=== PATIENT | female | born 1960 | race Caucasian/White ===

== ENCOUNTER 2022-10-12 06:48 | Emergency (ER) | payer MEDICAID ==
[~2022-10-12] VITALS: Ht 165.1 cm; Wt 63.5 kg
[2022-10-12 06:53] VITALS: BP_SYST 130
--- NOTE | 2022-10-12 07:01 | NUR ---
Patient to ER bed 5 to gown for evaluation. Side rails up. Report given to DAY SHIFT.
--- NOTE | 2022-10-12 07:03 | NUR ---
Dr. Contreras at bedside examining the patient.
[2022-10-12] MEDS ORDERED: PANTOPRAZOLE SODIUM 40 MG/VIAL (PROTONIX) IVP ONE (07:15)
[2022-10-12] MEDS ORDERED: MAG HYDROX/AL HYDROX/SIMETH 30 ML, LIDOCAINE VISCOUS 2% 15ML (PO) 15 ML, DICYCLOMINE HC... PO ONE ×3 (07:15)
--- NOTE | 2022-10-12 07:20 | NUR ---
PT BIBA AWAKE AND ALERT AOX4, NO SOB OR DISTRESS. PT C/O ABDOMINAL PAIN 02/21. PT DENIES N/V. PT HAS HX OF GERD, ETOH.
[2022-10-12 07:35] LABS: BASOPHILS # (AUTO) 0.1 K/uL (0.0-0.2); BASOPHILS % (AUTO) 0.9 % (0.0-2.0); EOSINOPHILS # (AUTO) 0.1 K/uL (0.0-0.4); HEMATOCRIT 40.4 % (36-48); HEMOGLOBIN 13.3 g/dL (12.0-16.0); LYMPHOCYTES # (AUTO) 2.1 K/uL (1.0-5.5); LYMPHOCYTES % (AUTO) 25.6 % (20.5-51.5); MEAN CORPUSCULAR HEMOGLOBIN 25 pg (27-31); MEAN CORPUSCULAR HGB CONC 33 % (32-36); MEAN CORPUSCULAR VOLUME 77 fL (79.0-98.0); MONOCYTES # (AUTO) 0.5 K/uL (0.0-1.0); MONOCYTES % (AUTO) 5.9 % (1.7-9.3); NEUTROPHILS # (AUTO) 5.4 K/uL (1.8-7.7); NEUTROPHILS % (AUTO) 66.6 % (40.0-70.0); PLATELET COUNT (AUTO) 454 K/uL (130-430); RED BLOOD CELL COUNT(AUTO) 5.25 MIL/uL (4.2-6.2); RED CELL DISTRIBUTION WIDTH 15.2 % (9.0-15.0); WHITE BLOOD COUNT (AUTO) 8.1 K/uL (4.8-10.8)
[2022-10-12 07:44] LABS: ANION GAP 9 (5-15); CALCIUM 8.7 mg/dL (8.4-11.0); CHLORIDE 104 mmol/L (98-107); CREATININE 0.78 mg/dL (0.55-1.30); GLUCOSE 124 mg/dL (70-99); UREA NITROGEN, BLOOD 10 mg/dL (8-21)
[2022-10-12 07:46] LABS: GFR AFRICAN AMERICAN 97 mL/min (>90)
[2022-10-12 07:48] LABS: PROTHROMBIN TIME 10.1 SECS (9.5-12.5)
[2022-10-12 07:51] LABS: ALANINE AMINOTRANSFERASE 13 U/L (12-78); ALBUMIN 2.9 g/dL (3.4-4.8); ASPARTATE AMINOTRANSFERASE 14 U/L (10-37); TOTAL BILIRUBIN 0.3 mg/dL (0.0-1.0)
[2022-10-12] MEDS ORDERED: SUCR1ORA4 PO (08:00)
[2022-10-12] MEDS ORDERED: ONDA-8 TL (08:00)
--- NOTE | 2022-10-12 08:19 | NUR ---
Patient given written and verbal discharge instructions and verbalizes understanding. ER MD DR PORTILLO discussed with patient the results and treatment provided. Patient in stable condition. ID arm band removed. IV catheter removed intact and dressing applied, no active bleeding. Rx of ZOFRAN, CARAFAT given. Patient educated on pain management and to follow up with PMD. Pain Scale 0/10. Opportunity for questions provided and answered. Medication side effect fact sheet provided.
[2022-10-12 08:44] VITALS: BP_SYST 135
== END 2022-10-12 08:19 | disposition home or self-care (01) ==
LOC: SED 06:48
DX: R10.10 Upper abdominal pain, unspecified (principal); R11.10 Vomiting, unspecified; Z79.899 Other long term (current) drug therapy
CPT/HCPCS: 99285; 96374; 71045; 80053; 85025; 85610; 85730; 86886; 86900; 86901; 84484; 36415; 93005; G0482; J2001; C9113

== ENCOUNTER 2023-02-09 12:43 | Inpatient (IN) | payer MEDICAID ==
[~2023-02-09] VITALS: Ht 165.1 cm; Wt 62.6 kg
[~2023-02-09 12:43] MED LIST: ONDA-8 TL; SUCR1ORA4 PO
[2023-02-09 12:58] VITALS: BP_SYST 122; PULSE 100; RESP 18; TEMP 98; O2SAT 94
[2023-02-09] MEDS ORDERED: NS 500 ML IV ONE (13:15)
[2023-02-09] MEDS ORDERED: ONDANSETRON HCL 4 MG/2 ML VIAL IVP ONE (13:15)
[2023-02-09] MEDS ORDERED: MORPHINE 4 MG INJ. 4 MG/ML VIAL IVP ONE (13:15)
[2023-02-09 14:14] LABS: BASOPHILS # (AUTO) 0.1 K/uL (0.0-0.2); EOSINOPHILS # (AUTO) 0.1 K/uL (0.0-0.4); EOSINOPHILS % (AUTO) 1.3 % (0.0-4.0); HEMOGLOBIN 11.3 g/dL (12.0-16.0); LYMPHOCYTES # (AUTO) 1.9 K/uL (1.0-5.5); LYMPHOCYTES % (AUTO) 25.9 % (20.5-51.5); MEAN CORPUSCULAR HEMOGLOBIN 24 pg (27-31); MEAN CORPUSCULAR HGB CONC 32 % (32-36); MEAN CORPUSCULAR VOLUME 73 fL (79.0-98.0); MONOCYTES # (AUTO) 0.8 K/uL (0.0-1.0); MONOCYTES % (AUTO) 10.3 % (1.7-9.3); NEUTROPHILS # (AUTO) 4.6 K/uL (1.8-7.7); NEUTROPHILS % (AUTO) 61.5 % (40.0-70.0); PLATELET COUNT (AUTO) 546 K/uL (130-430); RED CELL DISTRIBUTION WIDTH 15.5 % (9.0-15.0); WHITE BLOOD COUNT (AUTO) 7.5 K/uL (4.8-10.8)
[2023-02-09 14:36] LABS: ANION GAP 7 (5-15); CALCIUM 8.6 mg/dL (8.4-11.0); CHLORIDE 102 mmol/L (98-107); CREATININE 0.64 mg/dL (0.55-1.30); GFR AFRICAN AMERICAN 121 mL/min (>90); GLUCOSE 72 mg/dL (74-106); UREA NITROGEN, BLOOD 6 mg/dL (8-21)
[2023-02-09 14:44] LABS: ALANINE AMINOTRANSFERASE 8 U/L (12-78); ALBUMIN 2.4 g/dL (3.4-4.8); ASPARTATE AMINOTRANSFERASE 12 U/L (10-37); TOTAL BILIRUBIN 0.2 mg/dL (0.0-1.0)
[2023-02-09] MEDS ORDERED: PRO10 (17:30)
[2023-02-09] MEDS ORDERED: GABA-529 (17:31)
[2023-02-09] MEDS ORDERED: ESOM5SUS (17:31)
[2023-02-09 18:30] VITALS: BP_SYST 101; PULSE 106; RESP 16; TEMP 97.5; O2SAT 94
[2023-02-09 18:36] VITALS: BP_SYST 101; PULSE 106; RESP 16; TEMP 97.5
[2023-02-09 20:00] VITALS: BP_SYST 92; PULSE 95; RESP 18; TEMP 97.5; O2SAT 98
[2023-02-09] MEDS ORDERED: NALOXONE HCL 0.4 MG/ML AMP (NARCAN) IVP PRN (20:45)
[2023-02-09] MEDS ORDERED: ACETAMINOPHEN 325 MG TABLET PO PRN (21:30)
[2023-02-09] MEDS ORDERED: traMADol HCL HCL 50 MG TABLET (ULTRAM) PO PRN (21:30)
[2023-02-09] MEDS ORDERED: TEMAZEPAM 15 MG CAPSULE PO PRN (21:30)
[2023-02-09] MEDS ORDERED: ONDANSETRON 4 MG ODT TAB TL PRN (21:30)
[2023-02-09] MEDS: MORPHINE 2 MG/ML INJ. SYRINGE IVP PRN (21:39)
[2023-02-10 00:37] VITALS: BP_SYST 99; PULSE 67; RESP 18; TEMP 97.4; O2SAT 96
[2023-02-10 07:00] VITALS: O2SAT 98
[2023-02-10 07:05] VITALS: BP_SYST 133; PULSE 101; RESP 16; TEMP 98; O2SAT 94
[2023-02-10] MEDS: GABAPENTIN 100 MG CAPSULE PO SCH (08:41)
[2023-02-10] MEDS: SUCRALFATE 1 GM/10 ML UDC PO SCH ×2 (08:41→20:59)
[2023-02-10] MEDS: PANTOPRAZOLE SODIUM 40 MG TAB PO SCH (08:41)
[2023-02-10] MEDS: FLUoxetine HCL 10 MG CAPSULE (PROzac) PO SCH (08:42)
[2023-02-10] MEDS: MORPHINE 2 MG/ML INJ. SYRINGE IVP PRN ×3 (11:58→22:45)
[2023-02-10 12:00] VITALS: BP_SYST 114; PULSE 85; RESP 18; TEMP 98.8; O2SAT 99
[2023-02-10 16:00] VITALS: BP_SYST 121; PULSE 90; RESP 17; TEMP 98.6; O2SAT 95
[2023-02-10 20:00] VITALS: BP_SYST 125; PULSE 85; RESP 18; TEMP 97.3; O2SAT 95
[2023-02-11] VITALS: BP_SYST 91; PULSE 82; RESP 16; TEMP 97.2; O2SAT 95
[2023-02-11 02:07] VITALS: BP_SYST 108; PULSE 84; RESP 18; TEMP 97.3; O2SAT 96
[2023-02-11 08:51] VITALS: BP_SYST 134; PULSE 90; RESP 18; TEMP 97.7; O2SAT 100
[2023-02-11] MEDS: SUCRALFATE 1 GM/10 ML UDC PO SCH (08:53)
[2023-02-11] MEDS: GABAPENTIN 100 MG CAPSULE PO SCH (08:54)
[2023-02-11] MEDS: FLUoxetine HCL 10 MG CAPSULE (PROzac) PO SCH (08:54)
[2023-02-11] MEDS: PANTOPRAZOLE SODIUM 40 MG TAB PO SCH (08:56)
[2023-02-11] MEDS: MORPHINE 2 MG/ML INJ. SYRINGE IVP PRN ×2 (10:15→15:40)
[2023-02-11] MEDS ORDERED: CHOLECALCIFEROL (VITAMIN D3) 2,000 UNIT TABLET PO ONE (14:15)
[2023-02-12] MEDS ORDERED: CHOLECALCIFEROL (VITAMIN D3) 2,000 UNIT TABLET PO SCH (09:00)
== END 2023-02-11 17:43 | DRG 351 ==
LOC: SED 12:43 → SMU 17:08
PROVIDERS: ADMIT Internal Medicine; ATTEND Internal Medicine
DX: M19.011 Primary osteoarthritis, right shoulder (principal); E43 Unspecified severe protein-calorie malnutrition; D64.9 Anemia, unspecified; E78.5 Hyperlipidemia, unspecified; F32.A Depression, unspecified; E55.9 Vitamin D deficiency, unspecified; M19.012 Primary osteoarthritis, left shoulder; Z88.0 Allergy status to penicillin; Z79.899 Other long term (current) drug therapy; Z74.01 Bed confinement status; Z68.23 Body mass index [BMI] 23.0-23.9, adult; I10 Essential (primary) hypertension
CPT/HCPCS: 36415; 72100-TC; 73030; 80053; 82306; 84484; 85025; 85651-TC; 96361; 96374; 96375; 97110-GP; 97530-GP; 99285; J2270; J2405; J7040

== ENCOUNTER 2023-03-16 14:54 | Emergency (ER) | payer MEDICAID ==
[~2023-03-16] VITALS: Ht 165.1 cm; Wt 63.5 kg
[~2023-03-16 14:54] MED LIST changes: +ESOM5SUS; +GABA-529; +PRO10
[2023-03-16 14:55] VITALS: BP_SYST 108; PULSE 117; RESP 18; TEMP 98.8; O2SAT 97
[2023-03-16] MEDS ORDERED: KETOROLAC TROMETHAMINE 30 MG VIAL IVP ONE (15:15)
[2023-03-16] MEDS ORDERED: NACL 0.9% 1,000 ML IV ONE (15:15)
[2023-03-16 15:37] LABS: BASOPHILS # (AUTO) 0.1 K/uL (0.0-0.2); BASOPHILS % (AUTO) 0.8 % (0.0-2.0); EOSINOPHILS # (AUTO) 0.1 K/uL (0.0-0.4); EOSINOPHILS % (AUTO) 1.3 % (0.0-4.0); HEMATOCRIT 35.7 % (36-48); HEMOGLOBIN 11.3 g/dL (12.0-16.0); LYMPHOCYTES # (AUTO) 1.5 K/uL (1.0-5.5); LYMPHOCYTES % (AUTO) 21.2 % (20.5-51.5); MEAN CORPUSCULAR HEMOGLOBIN 23 pg (27-31); MEAN CORPUSCULAR HGB CONC 32 % (32-36); MEAN CORPUSCULAR VOLUME 71 fL (79.0-98.0); MONOCYTES # (AUTO) 0.8 K/uL (0.0-1.0); MONOCYTES % (AUTO) 11.3 % (1.7-9.3); NEUTROPHILS # (AUTO) 4.7 K/uL (1.8-7.7); NEUTROPHILS % (AUTO) 65.4 % (40.0-70.0); PLATELET COUNT (AUTO) 573 K/uL (130-430); RED BLOOD CELL COUNT(AUTO) 5.03 MIL/uL (4.2-6.2); RED CELL DISTRIBUTION WIDTH 17.2 % (9.0-15.0); WHITE BLOOD COUNT (AUTO) 7.1 K/uL (4.8-10.8)
[2023-03-16 15:41] LABS: CALCIUM 8.5 mg/dL (8.4-11.0); CREATININE 0.64 mg/dL (0.55-1.30)
[2023-03-16 15:47] LABS: TOTAL BILIRUBIN 0.3 mg/dL (0.0-1.0)
[2023-03-16 15:48] LABS: ALBUMIN 2.3 g/dL (3.4-4.8)
[2023-03-16 16:19] LABS: BILIRUBIN,URINE NEGATIVE (NEGATIVE); BLOOD, URINE 2+ (NEGATIVE); CLARITY/URINE CLOUDY (CLEAR); COLOR,URINE YELLOW (YELLOW); GLUCOSE,URINE NEGATIVE (NEGATIVE); KETONES,URINE NEGATIVE (NEGATIVE); LEUKOCYTE ESTERASE ,URINE TRACE (NEGATIVE); NITRITE, URINE NEGATIVE (NEGATIVE); PROTEIN URINE NEGATIVE (NEGATIVE)
[2023-03-16] MEDS ORDERED: PANTOPRAZOLE SODIUM 40 MG/VIAL (PROTONIX) IVP ONE (16:30)
[2023-03-16] MEDS ORDERED: ONDANSETRON HCL 4 MG/2 ML VIAL IVP SCH (16:30)
[2023-03-16 16:47] LABS: BACTERIA,URINE MANY /HPF (None Seen); MUCUS,URINE None Seen /LPF (None Seen); URINE AMORPHOUS PHOSPHATES 3+ /HPF (None Seen)
[2023-03-16] MEDS ORDERED: TRAM50TA2 PO (17:09)
[2023-03-16] MEDS ORDERED: LEVO750T64 PO (17:10)
[2023-03-16 19:01] VITALS: BP_SYST 122; PULSE 86; RESP 16; TEMP 97.6; O2SAT 100
== END 2023-03-16 19:37 | disposition home or self-care (01) ==
LOC: SED 14:54
DX: N39.0 Urinary tract infection, site not specified (principal); R10.9 Unspecified abdominal pain; E11.9 Type 2 diabetes mellitus without complications; I10 Essential (primary) hypertension; E78.5 Hyperlipidemia, unspecified; Z88.0 Allergy status to penicillin; Z91.018 Allergy to other foods; Z91.013 Allergy to seafood; Z99.3 Dependence on wheelchair; Z79.899 Other long term (current) drug therapy
CPT/HCPCS: 99285; 74176; 96374; 96361; 80053; 81000; 83690; 85025; 87086; 36415; 76376; J1885; J7030

== ENCOUNTER 2023-03-23 20:20 | Inpatient (IN) | payer MEDICAID ==
[~2023-03-23] VITALS: Ht 162.6 cm; Wt 63.5 kg
[~2023-03-23 20:20] MED LIST changes: +LEVO750T64 PO; +TRAM50TA2 PO
[2023-03-23 20:33] VITALS: BP_SYST 118; PULSE 122; RESP 20; TEMP 98.5; O2SAT 97
[2023-03-23 21:32] LABS: BASOPHILS # (AUTO) 0.1 K/uL (0.0-0.2); BASOPHILS % (AUTO) 1.1 % (0.0-2.0); EOSINOPHILS # (AUTO) 0.2 K/uL (0.0-0.4); EOSINOPHILS % (AUTO) 1.8 % (0.0-4.0); HEMATOCRIT 37.9 % (36-48); LYMPHOCYTES # (AUTO) 2.4 K/uL (1.0-5.5); LYMPHOCYTES % (AUTO) 27.8 % (20.5-51.5); MEAN CORPUSCULAR HEMOGLOBIN 22 pg (27-31); MEAN CORPUSCULAR HGB CONC 32 % (32-36); MEAN CORPUSCULAR VOLUME 70 fL (79.0-98.0); MONOCYTES # (AUTO) 0.6 K/uL (0.0-1.0); MONOCYTES % (AUTO) 7.1 % (1.7-9.3); NEUTROPHILS # (AUTO) 5.3 K/uL (1.8-7.7); NEUTROPHILS % (AUTO) 62.2 % (40.0-70.0); PLATELET COUNT (AUTO) 632 K/uL (130-430); RED BLOOD CELL COUNT(AUTO) 5.42 MIL/uL (4.2-6.2); WHITE BLOOD COUNT (AUTO) 8.6 K/uL (4.8-10.8)
[2023-03-23 22:04] LABS: ALANINE AMINOTRANSFERASE 3 U/L (12-78); ALBUMIN 2.2 g/dL (3.4-4.8); ANION GAP 8 (5-15); ASPARTATE AMINOTRANSFERASE 13 U/L (10-37); CARBON DIOXIDE 24 mmol/L (23-29); CHLORIDE 100 mmol/L (98-107); CREATININE 0.77 mg/dL (0.55-1.30); GFR AFRICAN AMERICAN 98 mL/min (>90); GLUCOSE 143 mg/dL (74-106); POTASSIUM 3.5 mmol/L (3.5-5.1); SODIUM SERUM 132 mmol/L (136-145); TOTAL BILIRUBIN 0.2 mg/dL (0.0-1.0); TOTAL PROTEIN, SERUM 7.8 g/dL (6.4-8.3); UREA NITROGEN, BLOOD 8 mg/dL (8-21)
[2023-03-23 22:18] LABS: GFR NON AFRICAN-AMERICAN 81 mL/min (>90)
[2023-03-23 22:36] LABS: ANISOCYTOSIS 1+; HYPOCHROMASIA 1+; OVALOCYTES MODERATE
[2023-03-23] MEDS ORDERED: MORPHINE 4 MG INJ. 4 MG/ML VIAL IVP ONE (23:30)
[2023-03-23] MEDS ORDERED: ONDANSETRON HCL 4 MG/2 ML VIAL IVP ONE (23:30)
[2023-03-24] MEDS ORDERED: MORPHINE 4 MG INJ. 4 MG/ML VIAL IVP ONE (04:30)
[2023-03-24] MEDS ORDERED: NACL 0.9% 1,000 ML IV ONE (04:30)
[2023-03-24] MEDS ORDERED: MORPHINE 4 MG INJ. 4 MG/ML VIAL ONE (04:40)
[2023-03-24 10:00] VITALS: BP_SYST 119; PULSE 87; RESP 18; TEMP 97.7; O2SAT 98
[2023-03-24 11:44] LABS: BILIRUBIN,URINE NEGATIVE (NEGATIVE); BLOOD, URINE NEGATIVE (NEGATIVE); CLARITY/URINE CLEAR (CLEAR); COLOR,URINE YELLOW (YELLOW); GLUCOSE,URINE NEGATIVE (NEGATIVE); KETONES,URINE NEGATIVE (NEGATIVE); LEUKOCYTE ESTERASE ,URINE NEGATIVE (NEGATIVE); NITRITE, URINE NEGATIVE (NEGATIVE); PH,URINE 6.5 (5.0-8.0); PROTEIN URINE TRACE (NEGATIVE)
[2023-03-24] MEDS ORDERED: ONDANSETRON HCL 4 MG/2 ML VIAL IVP PRN (14:30)
[2023-03-24] MEDS ORDERED: PANTOPRAZOLE SODIUM 40 MG TAB PO ONE (14:30)
[2023-03-24] MEDS ORDERED: GABAPENTIN 300 MG CAPSULE PO ONE (14:30)
[2023-03-24] MEDS ORDERED: ONDANSETRON 4 MG ODT TAB TL PRN (14:30)
[2023-03-24] MEDS ORDERED: SUCRALFATE 1 GM/10 ML UDC PO ONE (15:00)
[2023-03-24] MEDS ORDERED: METOCLOPRAMIDE HCL 10 MG/2 ML VIAL IVP PRN (15:15)
[2023-03-24] MEDS ORDERED: PANTOPRAZOLE SODIUM 80 MG in NS 100 ML IVP ONE (16:00)
[2023-03-24] MEDS ORDERED: PANTOPRAZOLE SODIUM 80 MG in NS 100 ML IV ONE (16:03)
[2023-03-24] MEDS: NACL 0.9% 1,000 ML IV SCH (16:24)
[2023-03-24] MEDS: PANTOPRAZOLE SODIUM 40 MG in NS 50 ML IV SCH ×2 (17:32→22:47)
[2023-03-24 20:00] VITALS: BP_SYST 109; PULSE 98; RESP 17; TEMP 97.8; O2SAT 98
[2023-03-24] MEDS: SUCRALFATE 1 GM/10 ML UDC PO SCH (20:27)
[2023-03-24] MEDS ORDERED: PANTOPRAZOLE SODIUM 40 MG TAB PO SCH (21:00)
[2023-03-25] VITALS: BP_SYST 127; PULSE 97; RESP 17; TEMP 98.2; O2SAT 97
[2023-03-25 01:33] LABS: ALBUMIN 1.8 g/dL (3.4-4.8); ANION GAP 8 (5-15); ASPARTATE AMINOTRANSFERASE 11 U/L (10-37); CARBON DIOXIDE 25 mmol/L (23-29); CHLORIDE 103 mmol/L (98-107); CREATININE 0.54 mg/dL (0.55-1.30); GFR AFRICAN AMERICAN 147 mL/min (>90); GFR NON AFRICAN-AMERICAN 122 mL/min (>90); GLUCOSE 80 mg/dL (74-106); POTASSIUM 3.6 mmol/L (3.5-5.1); SODIUM SERUM 136 mmol/L (136-145); TOTAL BILIRUBIN 0.2 mg/dL (0.0-1.0); TOTAL PROTEIN, SERUM 6.4 g/dL (6.4-8.3); UREA NITROGEN, BLOOD 6 mg/dL (8-21)
[2023-03-25 02:00] LABS: ALANINE AMINOTRANSFERASE < 5 U/L (12-78)
[2023-03-25] MEDS: PANTOPRAZOLE SODIUM 40 MG in NS 50 ML IV SCH ×2 (03:37→09:35)
[2023-03-25 04:53] LABS: BASOPHILS # (AUTO) 0.1 K/uL (0.0-0.2); BASOPHILS % (AUTO) 0.7 % (0.0-2.0); EOSINOPHILS # (AUTO) 0.2 K/uL (0.0-0.4); EOSINOPHILS % (AUTO) 2.7 % (0.0-4.0); HEMATOCRIT 30.5 % (36-48); HEMOGLOBIN 9.6 g/dL (12.0-16.0); LYMPHOCYTES # (AUTO) 1.9 K/uL (1.0-5.5); LYMPHOCYTES % (AUTO) 25.2 % (20.5-51.5); MEAN CORPUSCULAR HEMOGLOBIN 22 pg (27-31); MEAN CORPUSCULAR HGB CONC 31 % (32-36); MEAN CORPUSCULAR VOLUME 71 fL (79.0-98.0); MONOCYTES # (AUTO) 0.8 K/uL (0.0-1.0); MONOCYTES % (AUTO) 10.1 % (1.7-9.3); NEUTROPHILS # (AUTO) 4.6 K/uL (1.8-7.7); NEUTROPHILS % (AUTO) 61.3 % (40.0-70.0); PLATELET COUNT (AUTO) 528 K/uL (130-430); RED BLOOD CELL COUNT(AUTO) 4.33 MIL/uL (4.2-6.2); RED CELL DISTRIBUTION WIDTH 17.2 % (9.0-15.0); WHITE BLOOD COUNT (AUTO) 7.5 K/uL (4.8-10.8)
[2023-03-25 05:12] LABS: PROTHROMBIN TIME 10.3 SECS (9.5-12.5)
[2023-03-25] MEDS: NACL 0.9% 1,000 ML IV SCH ×2 (05:48→20:37)
[2023-03-25 08:00] VITALS: BP_SYST 118; PULSE 107; RESP 16; TEMP 97.5; O2SAT 2; O2SAT 95
[2023-03-25] MEDS ORDERED: DIATR MEGLU/DIATRIZ SOD 30 ML SOLUTION PO ONE (08:01)
[2023-03-25] MEDS ORDERED: D5/0.45 NS 1,000 ML IV ONE (09:00)
[2023-03-25] MEDS: SUCRALFATE 1 GM/10 ML UDC PO SCH ×2 (09:00→20:37)
[2023-03-25] MEDS: GABAPENTIN 300 MG CAPSULE PO SCH (09:00)
[2023-03-25] MEDS: FLUoxetine HCL 10 MG CAPSULE (PROzac) PO SCH (09:00)
[2023-03-25] MEDS ORDERED: SIMETHICONE 40 MG/0.6 ML ML ONE (09:09)
[2023-03-25] MEDS ORDERED: MEPERIDINE 100 MG INJ. 100 MG/ML VIAL ONE (09:09)
[2023-03-25] MEDS ORDERED: MIDAZOLAM HCL 5 MG/5 ML VIAL ONE (09:10)
[2023-03-25 12:00] VITALS: BP_SYST 101; PULSE 88; RESP 16; TEMP 98; O2SAT 99
[2023-03-25] MEDS ORDERED: PANTOPRAZOLE SODIUM 40 MG/VIAL (PROTONIX) IVP ONE (13:00)
[2023-03-25 16:00] VITALS: BP_SYST 99; PULSE 83; RESP 16; TEMP 97.6; O2SAT 100
[2023-03-25 20:00] VITALS: BP_SYST 109; PULSE 87; RESP 18; TEMP 97.3; O2SAT 96
[2023-03-25] MEDS: PANTOPRAZOLE SODIUM 40 MG TAB PO SCH (20:37)
[2023-03-26] VITALS (9 sets, daily range): BP systolic 99–118; PULSE 80–95; RESP 16–18; TEMP 97.7–98.7; O2SAT 96–99
[2023-03-26 04:40] LABS: BASOPHILS # (AUTO) 0.1 K/uL (0.0-0.2); BASOPHILS % (AUTO) 0.8 % (0.0-2.0); EOSINOPHILS # (AUTO) 0.2 K/uL (0.0-0.4); EOSINOPHILS % (AUTO) 2.4 % (0.0-4.0); HEMATOCRIT 29.8 % (36-48); HEMOGLOBIN 9.2 g/dL (12.0-16.0); LYMPHOCYTES # (AUTO) 1.9 K/uL (1.0-5.5); LYMPHOCYTES % (AUTO) 25.5 % (20.5-51.5); MEAN CORPUSCULAR HEMOGLOBIN 22 pg (27-31); MEAN CORPUSCULAR HGB CONC 31 % (32-36); MEAN CORPUSCULAR VOLUME 70 fL (79.0-98.0); MONOCYTES # (AUTO) 0.7 K/uL (0.0-1.0); MONOCYTES % (AUTO) 9.2 % (1.7-9.3); NEUTROPHILS # (AUTO) 4.7 K/uL (1.8-7.7); NEUTROPHILS % (AUTO) 62.1 % (40.0-70.0); PLATELET COUNT (AUTO) 529 K/uL (130-430); RED BLOOD CELL COUNT(AUTO) 4.26 MIL/uL (4.2-6.2); RED CELL DISTRIBUTION WIDTH 17.5 % (9.0-15.0); RETICULOCYTE COUNT 0.9 % (0.5-1.5); WHITE BLOOD COUNT (AUTO) 7.6 K/uL (4.8-10.8)
[2023-03-26 04:46] LABS: TOTAL IRON BIND. CAPACITY 175 ug/dL (250-450)
[2023-03-26 08:06] LABS: IMMUNOGLOBULIN G, SERUM <30 mg/dL (586-1602); IMMUNOGLOBULIN M, SERUM <5 mg/dL (26-217)
[2023-03-26] MEDS: GABAPENTIN 300 MG CAPSULE PO SCH (09:44)
[2023-03-26] MEDS: SUCRALFATE 1 GM/10 ML UDC PO SCH ×2 (09:44→21:24)
[2023-03-26] MEDS: PANTOPRAZOLE SODIUM 40 MG TAB PO SCH ×2 (09:45→21:24)
[2023-03-26] MEDS: FLUoxetine HCL 10 MG CAPSULE (PROzac) PO SCH (09:45)
[2023-03-26] MEDS: traMADol HCL HCL 50 MG TABLET (ULTRAM) PO PRN ×2 (09:45→21:24)
[2023-03-26] MEDS: NACL 0.9% 1,000 ML IV SCH (12:43)
[2023-03-26] MEDS: SOD FERRIC GLUC COMPLEX/SUC 125 MG in NS 100 ML IV SCH (16:00)
[2023-03-27] VITALS (7 sets, daily range): BP systolic 96–121; PULSE 87–100; RESP 16; TEMP 96.5–98.7; O2SAT 96–98
[2023-03-27] MEDS: NACL 0.9% 1,000 ML IV SCH ×2 (00:42→15:00)
[2023-03-27] MEDS: traMADol HCL HCL 50 MG TABLET (ULTRAM) PO PRN ×2 (06:04→19:22)
[2023-03-27] MEDS: GABAPENTIN 300 MG CAPSULE PO SCH (09:25)
[2023-03-27] MEDS: PANTOPRAZOLE SODIUM 40 MG TAB PO SCH ×2 (09:25→22:25)
[2023-03-27] MEDS: SUCRALFATE 1 GM/10 ML UDC PO SCH ×2 (09:25→22:25)
[2023-03-27] MEDS: FLUoxetine HCL 10 MG CAPSULE (PROzac) PO SCH (09:25)
[2023-03-27 11:00] LABS: BASOPHILS # (AUTO) 0.1 K/uL (0.0-0.2); BASOPHILS % (AUTO) 0.9 % (0.0-2.0); EOSINOPHILS # (AUTO) 0.3 K/uL (0.0-0.4); EOSINOPHILS % (AUTO) 4.7 % (0.0-4.0); HEMATOCRIT 31.4 % (36-48); HEMOGLOBIN 9.8 g/dL (12.0-16.0); LYMPHOCYTES # (AUTO) 1.3 K/uL (1.0-5.5); LYMPHOCYTES % (AUTO) 23.1 % (20.5-51.5); MEAN CORPUSCULAR HEMOGLOBIN 22 pg (27-31); MEAN CORPUSCULAR HGB CONC 31 % (32-36); MEAN CORPUSCULAR VOLUME 70 fL (79.0-98.0); MONOCYTES # (AUTO) 0.6 K/uL (0.0-1.0); MONOCYTES % (AUTO) 9.8 % (1.7-9.3); NEUTROPHILS # (AUTO) 3.6 K/uL (1.8-7.7); NEUTROPHILS % (AUTO) 61.5 % (40.0-70.0); PLATELET COUNT (AUTO) 552 K/uL (130-430); RED BLOOD CELL COUNT(AUTO) 4.48 MIL/uL (4.2-6.2); RED CELL DISTRIBUTION WIDTH 16.9 % (9.0-15.0); WHITE BLOOD COUNT (AUTO) 5.8 K/uL (4.8-10.8)
[2023-03-27] MEDS: SOD FERRIC GLUC COMPLEX/SUC 125 MG in NS 100 ML IV SCH (13:19)
[2023-03-28] VITALS: BP_SYST 104; PULSE 82; RESP 16; TEMP 98.2; O2SAT 96
[2023-03-28] MEDS: NACL 0.9% 1,000 ML IV SCH ×2 (04:37→21:31)
[2023-03-28 07:06] LABS: FOLATE (FOLIC ACID) 2.8 ng/mL (>3.0)
[2023-03-28 07:21] LABS: BASOPHILS # (AUTO) 0.1 K/uL (0.0-0.2); EOSINOPHILS # (AUTO) 0.2 K/uL (0.0-0.4); EOSINOPHILS % (AUTO) 4.5 % (0.0-4.0); HEMATOCRIT 31.9 % (36-48); LYMPHOCYTES # (AUTO) 1.3 K/uL (1.0-5.5); LYMPHOCYTES % (AUTO) 23.1 % (20.5-51.5); MEAN CORPUSCULAR HEMOGLOBIN 22 pg (27-31); MEAN CORPUSCULAR HGB CONC 31 % (32-36); MEAN CORPUSCULAR VOLUME 70 fL (79.0-98.0); MONOCYTES # (AUTO) 0.6 K/uL (0.0-1.0); MONOCYTES % (AUTO) 10.2 % (1.7-9.3); NEUTROPHILS # (AUTO) 3.4 K/uL (1.8-7.7); NEUTROPHILS % (AUTO) 61.2 % (40.0-70.0); PLATELET COUNT (AUTO) 543 K/uL (130-430); RED BLOOD CELL COUNT(AUTO) 4.54 MIL/uL (4.2-6.2); RED CELL DISTRIBUTION WIDTH 17.3 % (9.0-15.0); WHITE BLOOD COUNT (AUTO) 5.6 K/uL (4.8-10.8)
[2023-03-28 07:28] LABS: CREATININE 0.61 mg/dL (0.55-1.30); POTASSIUM 3.4 mmol/L (3.5-5.1)
[2023-03-28] MEDS: FLUoxetine HCL 10 MG CAPSULE (PROzac) PO SCH (09:35)
[2023-03-28] MEDS: GABAPENTIN 300 MG CAPSULE PO SCH (09:35)
[2023-03-28] MEDS: SUCRALFATE 1 GM/10 ML UDC PO SCH ×2 (09:35→21:30)
[2023-03-28] MEDS: PANTOPRAZOLE SODIUM 40 MG TAB PO SCH ×2 (09:35→21:30)
[2023-03-28 10:52] VITALS: O2SAT 97
[2023-03-28 11:30] VITALS: BP_SYST 107; PULSE 102; RESP 19; TEMP 98.4; O2SAT 95
[2023-03-28] MEDS ORDERED: POTASSIUM CHLORIDE 20 MEQ/PKT PACKET PO ONE (13:30)
[2023-03-28] MEDS: SOD FERRIC GLUC COMPLEX/SUC 125 MG in NS 100 ML IV SCH (15:47)
[2023-03-28 18:31] VITALS: BP_SYST 110; PULSE 105; RESP 18; TEMP 98.1; O2SAT 97
[2023-03-28 20:00] VITALS: BP_SYST 112; PULSE 95; RESP 16; TEMP 97.5; O2SAT 95
[2023-03-28] MEDS: traMADol HCL HCL 50 MG TABLET (ULTRAM) PO PRN (21:30)
[2023-03-29] VITALS: BP_SYST 94; PULSE 102; RESP 18; TEMP 97.8; O2SAT 94
[2023-03-29 04:53] LABS: BASOPHILS # (AUTO) 0.1 K/uL (0.0-0.2); BASOPHILS % (AUTO) 0.9 % (0.0-2.0); EOSINOPHILS # (AUTO) 0.2 K/uL (0.0-0.4); EOSINOPHILS % (AUTO) 3.2 % (0.0-4.0); HEMATOCRIT 31.9 % (36-48); HEMOGLOBIN 9.9 g/dL (12.0-16.0); LYMPHOCYTES % (AUTO) 31.1 % (20.5-51.5); MEAN CORPUSCULAR HEMOGLOBIN 22 pg (27-31); MEAN CORPUSCULAR HGB CONC 31 % (32-36); MEAN CORPUSCULAR VOLUME 70 fL (79.0-98.0); MONOCYTES # (AUTO) 0.7 K/uL (0.0-1.0); MONOCYTES % (AUTO) 11.4 % (1.7-9.3); NEUTROPHILS # (AUTO) 3.4 K/uL (1.8-7.7); NEUTROPHILS % (AUTO) 53.4 % (40.0-70.0); PLATELET COUNT (AUTO) 552 K/uL (130-430); RED BLOOD CELL COUNT(AUTO) 4.59 MIL/uL (4.2-6.2); RED CELL DISTRIBUTION WIDTH 17.3 % (9.0-15.0); WHITE BLOOD COUNT (AUTO) 6.3 K/uL (4.8-10.8)
[2023-03-29 05:23] LABS: CALCIUM 7.8 mg/dL (8.4-11.0); CREATININE 0.63 mg/dL (0.55-1.30); POTASSIUM 3.1 mmol/L (3.5-5.1)
[2023-03-29 08:07] LABS: A/G RATIO 0.5 (0.7-1.7); ALPHA-1-GLOBULIN 0.3 g/dL (0.0-0.4); ALPHA-2-GLOBULIN 0.9 g/dL (0.4-1.0); BETA GLOBULIN 0.9 g/dL (0.7-1.3); GAMMA GLOBULIN 2.1 g/dL (0.4-1.8); GLOBULIN, TOTAL 4.1 g/dL (2.2-3.9); M-SPIKE 0.7 g/dL (Not Observed)
[2023-03-29] MEDS: POTASSIUM CHLORIDE 20 MEQ/PKT PACKET PO SCH (09:11)
[2023-03-29] MEDS: FLUoxetine HCL 10 MG CAPSULE (PROzac) PO SCH (09:12)
[2023-03-29] MEDS: GABAPENTIN 300 MG CAPSULE PO SCH ×2 (09:12→20:42)
[2023-03-29] MEDS: SUCRALFATE 1 GM/10 ML UDC PO SCH ×2 (09:12→20:42)
[2023-03-29] MEDS: NACL 0.9% 1,000 ML IV SCH ×2 (09:12→16:57)
[2023-03-29] MEDS: PANTOPRAZOLE SODIUM 40 MG TAB PO SCH ×2 (09:12→20:42)
[2023-03-29 10:34] VITALS: O2SAT 94
[2023-03-29 11:41] VITALS: BP_SYST 97; PULSE 83; RESP 18; TEMP 98; O2SAT 96
[2023-03-29] MEDS: SOD FERRIC GLUC COMPLEX/SUC 125 MG in NS 100 ML IV SCH (14:12)
[2023-03-29 16:58] VITALS: BP_SYST 110; PULSE 88; RESP 18; TEMP 98; O2SAT 95
[2023-03-29] MEDS ORDERED: ACETAMINOPHEN 325 MG TABLET PO PRN (18:15)
[2023-03-29] MEDS: HYDROcodone/ACETAMIN 5-325 MG TAB (NORCO/ VICODIN) PO PRN (18:33)
[2023-03-29 20:00] VITALS: O2SAT 95
[2023-03-29 20:56] VITALS: BP_SYST 99; PULSE 93; RESP 16; TEMP 97.9; O2SAT 95
[2023-03-30] VITALS (7 sets, daily range): BP systolic 106–139; PULSE 88–98; RESP 16–17; TEMP 96.8–98; O2SAT 94–96
[2023-03-30] MEDS: GABAPENTIN 300 MG CAPSULE PO SCH ×3 (09:11→20:31)
[2023-03-30] MEDS: PANTOPRAZOLE SODIUM 40 MG TAB PO SCH ×2 (09:11→20:31)
[2023-03-30] MEDS: SUCRALFATE 1 GM/10 ML UDC PO SCH ×2 (09:11→20:30)
[2023-03-30] MEDS: FLUoxetine HCL 10 MG CAPSULE (PROzac) PO SCH (09:11)
[2023-03-30] MEDS: POTASSIUM CHLORIDE 20 MEQ/PKT PACKET PO SCH (09:11)
[2023-03-30] MEDS: FOLIC ACID 1 MG TABLET PO SCH (09:14)
[2023-03-30] MEDS: CYANOCOBALAMIN 1000 MCG/ML VIAL IM SCH (09:16)
[2023-03-30 09:44] LABS: KAPPA & LAMBDA LT CHAIN RATIO 1.48 ratio (0.26-1.65)
[2023-03-30] MEDS ORDERED: POTASSIUM CHLORIDE 20 MEQ TAB.PRT.SR PO ONE (11:00)
[2023-03-30] MEDS ORDERED: NALOXONE HCL 0.4 MG/ML AMP (NARCAN) IVP PRN ×2 (11:15→11:21)
[2023-03-30] MEDS ORDERED: KCL 40 mEq in D5W 1000 mL 1,000 ML IV SCH (12:00)
[2023-03-30] MEDS: MORPHINE 4 MG INJ. 4 MG/ML VIAL IVP PRN ×2 (17:57→22:32)
[2023-03-31 01:11] VITALS: BP_SYST 95; PULSE 94; RESP 17; TEMP 97.6; O2SAT 94
[2023-03-31 07:43] LABS: PROTHROMBIN TIME 10.7 SECS (9.5-12.5)
[2023-03-31 08:00] VITALS: BP_SYST 120; PULSE 95; RESP 16; TEMP 97.6; O2SAT 95
[2023-03-31 08:30] VITALS: BP_SYST 120; PULSE 95; RESP 16; TEMP 97.6; O2SAT 95
[2023-03-31] MEDS ORDERED: LIDOCAINE 1%, 20 ML MDV 20 ML ONE (08:51)
[2023-03-31] MEDS: GABAPENTIN 300 MG CAPSULE PO SCH ×3 (09:00→21:09)
[2023-03-31] MEDS: SUCRALFATE 1 GM/10 ML UDC PO SCH ×2 (09:00→21:09)
[2023-03-31] MEDS: FOLIC ACID 1 MG TABLET PO SCH (09:00)
[2023-03-31] MEDS: PANTOPRAZOLE SODIUM 40 MG TAB PO SCH ×2 (09:00→21:09)
[2023-03-31] MEDS: FLUoxetine HCL 10 MG CAPSULE (PROzac) PO SCH (09:00)
[2023-03-31] MEDS: CYANOCOBALAMIN 1000 MCG/ML VIAL IM SCH (09:00)
[2023-03-31] MEDS: POTASSIUM CHLORIDE 20 MEQ/PKT PACKET PO SCH (09:00)
[2023-03-31] MEDS ORDERED: fentaNYL CITRATE/PF 100 MCG/2 ML AMP ONE (09:39)
[2023-03-31] MEDS ORDERED: MIDAZOLAM HCL 5 MG/5 ML VIAL ONE (09:40)
[2023-03-31] MEDS: MIDAZOLAM HCL 2 MG/2 ML VIAL (VERSED) IVP PRN ×2 (10:40→11:00)
[2023-03-31 12:30] VITALS: BP_SYST 115; PULSE 90; RESP 17; TEMP 96.9; O2SAT 97
[2023-03-31] MEDS ORDERED: fentaNYL CITRATE/PF 100 MCG/2 ML AMP IVP ONE (13:30)
[2023-03-31] MEDS: MORPHINE 4 MG INJ. 4 MG/ML VIAL IVP PRN ×2 (13:31→18:48)
[2023-03-31 14:01] VITALS: O2SAT 95
[2023-03-31 19:00] VITALS: BP_SYST 91; PULSE 81; RESP 17; TEMP 97.7; O2SAT 95
[2023-03-31] MEDS: HYDROcodone/ACETAMIN 5-325 MG TAB (NORCO/ VICODIN) PO PRN (21:24)
[2023-04-01] VITALS: BP_SYST 91; PULSE 78; RESP 16; TEMP 97.6; O2SAT 94
[2023-04-01] MEDS: HYDROcodone/ACETAMIN 5-325 MG TAB (NORCO/ VICODIN) PO PRN ×2 (05:21→09:15)
[2023-04-01 08:07] LABS: BASOPHILS # (AUTO) 0.1 K/uL (0.0-0.2); EOSINOPHILS # (AUTO) 0.2 K/uL (0.0-0.4); EOSINOPHILS % (AUTO) 3.5 % (0.0-4.0); HEMATOCRIT 31.6 % (36-48); HEMOGLOBIN 9.9 g/dL (12.0-16.0); LYMPHOCYTES # (AUTO) 1.7 K/uL (1.0-5.5); LYMPHOCYTES % (AUTO) 24.5 % (20.5-51.5); MEAN CORPUSCULAR HEMOGLOBIN 22 pg (27-31); MEAN CORPUSCULAR HGB CONC 31 % (32-36); MEAN CORPUSCULAR VOLUME 71 fL (79.0-98.0); MONOCYTES # (AUTO) 0.9 K/uL (0.0-1.0); MONOCYTES % (AUTO) 12.8 % (1.7-9.3); NEUTROPHILS % (AUTO) 58.2 % (40.0-70.0); PLATELET COUNT (AUTO) 583 K/uL (130-430); RED BLOOD CELL COUNT(AUTO) 4.48 MIL/uL (4.2-6.2); RED CELL DISTRIBUTION WIDTH 17.8 % (9.0-15.0); WHITE BLOOD COUNT (AUTO) 6.8 K/uL (4.8-10.8)
[2023-04-01] MEDS ORDERED: MILK OF MAGNESIA 30 ML UDC PO ONE (08:30)
[2023-04-01] MEDS ORDERED: DOCUSATE SODIUM 100 MG CAPSULE PO ONE (08:45)
[2023-04-01] MEDS: GABAPENTIN 300 MG CAPSULE PO SCH ×3 (09:13→21:03)
[2023-04-01] MEDS: SUCRALFATE 1 GM/10 ML UDC PO SCH ×2 (09:13→21:03)
[2023-04-01] MEDS: POTASSIUM CHLORIDE 20 MEQ/PKT PACKET PO SCH (09:15)
[2023-04-01] MEDS: PANTOPRAZOLE SODIUM 40 MG TAB PO SCH ×2 (09:15→21:03)
[2023-04-01] MEDS: FLUoxetine HCL 10 MG CAPSULE (PROzac) PO SCH (09:15)
[2023-04-01] MEDS: CYANOCOBALAMIN 1000 MCG/ML VIAL IM SCH (09:15)
[2023-04-01] MEDS: FOLIC ACID 1 MG TABLET PO SCH (09:15)
[2023-04-01 10:20] LABS: CALCIUM 8.4 mg/dL (8.4-11.0); CREATININE 0.65 mg/dL (0.55-1.30); POTASSIUM 3.4 mmol/L (3.5-5.1)
[2023-04-01] MEDS ORDERED: GADOTERATE MEGLUMINE 7.5 MMOL/15 ML VIAL IV ONE (10:25)
[2023-04-01 10:45] VITALS: O2SAT 94
[2023-04-01] MEDS: MORPHINE 4 MG INJ. 4 MG/ML VIAL IVP PRN ×3 (12:14→21:04)
[2023-04-01 20:00] VITALS: BP_SYST 106; PULSE 93; RESP 17; TEMP 98; O2SAT 96
[2023-04-02 00:38] VITALS: BP_SYST 93; PULSE 97; RESP 19; TEMP 97.7; O2SAT 94
[2023-04-02] MEDS: MORPHINE 4 MG INJ. 4 MG/ML VIAL IVP PRN (00:58)
[2023-04-02 05:02] LABS: BASOPHILS # (AUTO) 0.1 K/uL (0.0-0.2); BASOPHILS % (AUTO) 1.1 % (0.0-2.0); EOSINOPHILS # (AUTO) 0.3 K/uL (0.0-0.4); EOSINOPHILS % (AUTO) 3.7 % (0.0-4.0); HEMATOCRIT 31.6 % (36-48); HEMOGLOBIN 9.9 g/dL (12.0-16.0); LYMPHOCYTES % (AUTO) 27.5 % (20.5-51.5); MEAN CORPUSCULAR HEMOGLOBIN 22 pg (27-31); MEAN CORPUSCULAR HGB CONC 31 % (32-36); MEAN CORPUSCULAR VOLUME 71 fL (79.0-98.0); MONOCYTES # (AUTO) 0.9 K/uL (0.0-1.0); MONOCYTES % (AUTO) 12.5 % (1.7-9.3); NEUTROPHILS % (AUTO) 55.2 % (40.0-70.0); PLATELET COUNT (AUTO) 608 K/uL (130-430); RED BLOOD CELL COUNT(AUTO) 4.47 MIL/uL (4.2-6.2); RED CELL DISTRIBUTION WIDTH 17.8 % (9.0-15.0); WHITE BLOOD COUNT (AUTO) 7.3 K/uL (4.8-10.8)
[2023-04-02 05:31] LABS: ALBUMIN 1.8 g/dL (3.4-4.8); CREATININE 0.69 mg/dL (0.55-1.30); TOTAL BILIRUBIN 0.2 mg/dL (0.0-1.0); TOTAL PROTEIN, SERUM 6.7 g/dL (6.4-8.3)
[2023-04-02 08:00] VITALS: BP_SYST 103; PULSE 95; RESP 17; TEMP 98.1; O2SAT 94
[2023-04-02] MEDS: CYANOCOBALAMIN 1000 MCG/ML VIAL IM SCH (09:00)
[2023-04-02] MEDS: SUCRALFATE 1 GM/10 ML UDC PO SCH ×2 (09:00→21:24)
[2023-04-02] MEDS ORDERED: DOCUSATE SODIUM 100 MG CAPSULE PO SCH (09:00)
[2023-04-02] MEDS: traMADol HCL HCL 50 MG TABLET (ULTRAM) PO PRN (10:49)
[2023-04-02] MEDS: GABAPENTIN 300 MG CAPSULE PO SCH (10:49)
[2023-04-02] MEDS: PANTOPRAZOLE SODIUM 40 MG TAB PO SCH (10:49)
[2023-04-02] MEDS: FLUoxetine HCL 10 MG CAPSULE (PROzac) PO SCH (10:49)
[2023-04-02] MEDS: FOLIC ACID 1 MG TABLET PO SCH (10:49)
[2023-04-02] MEDS: POTASSIUM CHLORIDE 20 MEQ/PKT PACKET PO SCH (10:49)
[2023-04-02] MEDS: KETOROLAC TROMETHAMINE 15 MG VIAL IVP PRN (11:02)
[2023-04-02 11:37] VITALS: O2SAT 95
[2023-04-02 12:00] VITALS: BP_SYST 107; PULSE 120; RESP 18; TEMP 98.7; O2SAT 95
[2023-04-02] MEDS ORDERED: MORPHINE 4 MG INJ. 4 MG/ML VIAL IVP PRN (12:15)
[2023-04-02] MEDS: GABAPENTIN 400 MG CAPSULE PO SCH ×3 (13:00→21:24)
[2023-04-02] MEDS: HYDROcodone/ACETAMIN 5-325 MG TAB (NORCO/ VICODIN) PO SCH ×3 (13:00→21:25)
[2023-04-02 16:00] VITALS: BP_SYST 90; PULSE 111; RESP 20; TEMP 97.7; O2SAT 93
[2023-04-02 20:00] VITALS: BP_SYST 92; PULSE 96; RESP 18; TEMP 97.4; O2SAT 95
[2023-04-02] MEDS: DOCUSATE SODIUM 250 MG CAPSULE PO SCH (21:25)
[2023-04-03 00:25] VITALS: BP_SYST 90; PULSE 93; RESP 17; TEMP 98.4; O2SAT 99
[2023-04-03] MEDS: KETOROLAC TROMETHAMINE 15 MG VIAL IVP PRN ×3 (04:40→20:17)
[2023-04-03 08:26] VITALS: BP_SYST 106; PULSE 91; RESP 16; TEMP 97.5; O2SAT 98
[2023-04-03] MEDS: GABAPENTIN 400 MG CAPSULE PO SCH ×4 (08:33→22:18)
[2023-04-03] MEDS: POTASSIUM CHLORIDE 20 MEQ/PKT PACKET PO SCH (08:33)
[2023-04-03] MEDS: SUCRALFATE 1 GM/10 ML UDC PO SCH ×2 (08:33→22:18)
[2023-04-03] MEDS: HYDROcodone/ACETAMIN 5-325 MG TAB (NORCO/ VICODIN) PO SCH ×4 (08:34→22:19)
[2023-04-03] MEDS: PANTOPRAZOLE SODIUM 40 MG TAB PO SCH (08:34)
[2023-04-03] MEDS: DOCUSATE SODIUM 250 MG CAPSULE PO SCH ×2 (08:34→22:18)
[2023-04-03] MEDS: FOLIC ACID 1 MG TABLET PO SCH (08:34)
[2023-04-03] MEDS: FLUoxetine HCL 10 MG CAPSULE (PROzac) PO SCH (08:34)
[2023-04-03] MEDS: CYANOCOBALAMIN 1000 MCG/ML VIAL IM SCH (08:35)
[2023-04-03 11:30] VITALS: BP_SYST 94; PULSE 84; RESP 17; TEMP 97.6; O2SAT 95
[2023-04-03 17:30] VITALS: BP_SYST 94; PULSE 75; RESP 16; TEMP 97.9; O2SAT 97
[2023-04-03 20:00] VITALS: BP_SYST 99; PULSE 72; RESP 17; TEMP 98; O2SAT 96
[2023-04-04 01:47] VITALS: BP_SYST 92; PULSE 69; RESP 17; TEMP 97.4; O2SAT 96
[2023-04-04] MEDS: KETOROLAC TROMETHAMINE 15 MG VIAL IVP PRN ×2 (02:36→08:37)
[2023-04-04 08:41] VITALS: BP_SYST 109; PULSE 86; RESP 18; TEMP 97.1; O2SAT 98
[2023-04-04 10:00] VITALS: O2SAT 95
[2023-04-04] MEDS: HYDROcodone/ACETAMIN 5-325 MG TAB (NORCO/ VICODIN) PO SCH ×3 (10:46→17:03)
[2023-04-04] MEDS: POTASSIUM CHLORIDE 20 MEQ/PKT PACKET PO SCH (10:49)
[2023-04-04] MEDS: FOLIC ACID 1 MG TABLET PO SCH (10:49)
[2023-04-04] MEDS: SUCRALFATE 1 GM/10 ML UDC PO SCH (10:50)
[2023-04-04] MEDS: PANTOPRAZOLE SODIUM 40 MG TAB PO SCH (10:50)
[2023-04-04] MEDS: FLUoxetine HCL 10 MG CAPSULE (PROzac) PO SCH (10:50)
[2023-04-04] MEDS: DOCUSATE SODIUM 250 MG CAPSULE PO SCH (10:50)
[2023-04-04] MEDS: GABAPENTIN 400 MG CAPSULE PO SCH ×3 (10:51→17:03)
[2023-04-04 11:32] VITALS: BP_SYST 99; PULSE 79; RESP 17; TEMP 97.2; O2SAT 96
[2023-04-04] MEDS ORDERED: KETO10TA2 PO (13:57)
[2023-04-04] MEDS ORDERED: GABA-529 PO (13:57)
[2023-04-04] MEDS ORDERED: NEU300 PO (13:59)
[2023-04-04 16:46] VITALS: BP_SYST 101; PULSE 74; RESP 16; TEMP 97.6; O2SAT 95
[2023-04-04 17:09] VITALS: BP_SYST 101; PULSE 74; RESP 18; TEMP 97.6; O2SAT 95
== END 2023-04-04 19:47 | disposition home health service (06) | DRG 136 ==
LOC: SED 20:20 → STU 03-24 08:09 → SMU 03-25 11:06
PROVIDERS: ADMIT Internal Medicine; ATTEND Internal Medicine
PROC: 0DB78ZX Excision of Stomach, Pylorus, Via Natural or Artificial Opening Endoscopic, Diagnostic (ICD-10-PCS; principal; 2023-03-25 12:30)
PROC: 0PB43ZX Excision of Thoracic Vertebra, Percutaneous Approach, Diagnostic (ICD-10-PCS; 2023-03-31)
DX: C34.90 Malignant neoplasm of unspecified part of unspecified bronchus or lung (principal); J96.00 Acute respiratory failure, unspecified whether with hypoxia or hypercapnia; E43 Unspecified severe protein-calorie malnutrition; C79.51 Secondary malignant neoplasm of bone; D80.1 Nonfamilial hypogammaglobulinemia; K29.71 Gastritis, unspecified, with bleeding; E87.1 Hypo-osmolality and hyponatremia; G89.3 Neoplasm related pain (acute) (chronic); D75.839 Thrombocytosis, unspecified; D50.9 Iron deficiency anemia, unspecified; E78.5 Hyperlipidemia, unspecified; M51.34 Other intervertebral disc degeneration, thoracic region; M81.0 Age-related osteoporosis without current pathological fracture; N39.0 Urinary tract infection, site not specified; N20.0 Calculus of kidney; K44.9 Diaphragmatic hernia without obstruction or gangrene; F17.210 Nicotine dependence, cigarettes, uncomplicated; F32.A Depression, unspecified; K21.9 Gastro-esophageal reflux disease without esophagitis; M06.9 Rheumatoid arthritis, unspecified; I70.90 Unspecified atherosclerosis; K57.90 Diverticulosis of intestine, part unspecified, without perforation or abscess without bleeding; Z20.822 Contact with and (suspected) exposure to COVID-19; K82.9 Disease of gallbladder, unspecified; Z88.0 Allergy status to penicillin; Z91.013 Allergy to seafood; Z91.018 Allergy to other foods; Z79.899 Other long term (current) drug therapy; Z99.3 Dependence on wheelchair; Z98.51 Tubal ligation status; Z68.24 Body mass index [BMI] 24.0-24.9, adult
CPT/HCPCS: 36415; 43239; 71045; 71275; 73030; 76376; 76856-TC; 80048; 80053; 81003; 82607; 82728; 82746; 82784; 82962; 83540; 83550; 83605; 83880; 84155; 84165; 84484; 85025; 85044; 85379; 85610-TC; 85730-TC; 86304; 87081; 88305; 88307; 88312; 88313; 93005; 93970; 97110-GP; 97163-GP; 99285; A9575; C9113; G0378; J1885; J2001; J2175; J2250; J2270; J2405; J2916; J3010; J3420; J7030; Q9964; Q9967

== ENCOUNTER 2023-04-08 22:00 | Emergency (ER) | payer MEDICAID ==
[~2023-04-08] VITALS: Ht 160 cm; Wt 59.0 kg
[~2023-04-08 22:00] MED LIST changes: -GABA-529; +GABA-529 PO; +KETO10TA2 PO; -LEVO750T64 PO; +NEU300 PO
[2023-04-08 22:15] VITALS: BP_SYST 118; PULSE 110; RESP 17; TEMP 96.6; O2SAT 98
[2023-04-08] MEDS ORDERED: MORPHINE 4 MG INJ. 4 MG/ML VIAL IVP ONE (22:30)
[2023-04-08 23:51] LABS: CALCIUM 8.2 mg/dL (8.4-11.0); CREATININE 0.74 mg/dL (0.55-1.30); POTASSIUM 3.7 mmol/L (3.5-5.1)
[2023-04-08 23:58] LABS: TOTAL BILIRUBIN 0.1 mg/dL (0.0-1.0); TOTAL PROTEIN, SERUM 7.3 g/dL (6.4-8.3)
[2023-04-09 00:11] LABS: BASOPHILS # (AUTO) 0.1 K/uL (0.0-0.2); BASOPHILS % (AUTO) 0.8 % (0.0-2.0); EOSINOPHILS # (AUTO) 0.3 K/uL (0.0-0.4); EOSINOPHILS % (AUTO) 2.8 % (0.0-4.0); HEMATOCRIT 32.9 % (36-48); HEMOGLOBIN 10.4 g/dL (12.0-16.0); LYMPHOCYTES # (AUTO) 2.8 K/uL (1.0-5.5); LYMPHOCYTES % (AUTO) 25.5 % (20.5-51.5); MEAN CORPUSCULAR HEMOGLOBIN 23 pg (27-31); MEAN CORPUSCULAR HGB CONC 32 % (32-36); MEAN CORPUSCULAR VOLUME 71 fL (79.0-98.0); MONOCYTES # (AUTO) 1.3 K/uL (0.0-1.0); MONOCYTES % (AUTO) 11.7 % (1.7-9.3); NEUTROPHILS # (AUTO) 6.6 K/uL (1.8-7.7); NEUTROPHILS % (AUTO) 59.2 % (40.0-70.0); PLATELET COUNT (AUTO) 608 K/uL (130-430); RED BLOOD CELL COUNT(AUTO) 4.62 MIL/uL (4.2-6.2); RED CELL DISTRIBUTION WIDTH 20.5 % (9.0-15.0); WHITE BLOOD COUNT (AUTO) 11.2 K/uL (4.8-10.8)
[2023-04-09] MEDS ORDERED: NACL 0.9% 1,000 ML IV ONE (02:15)
[2023-04-09] MEDS ORDERED: MORPHINE 4 MG INJ. 4 MG/ML VIAL IVP ONE ×3 (03:30→15:15)
[2023-04-09 03:38] LABS: CLARITY/URINE SLIGHTLY CLOUDY (CLEAR); COLOR,URINE YELLOW (YELLOW); GLUCOSE,URINE NEGATIVE (NEGATIVE); KETONES,URINE NEGATIVE (NEGATIVE); LEUKOCYTE ESTERASE ,URINE NEGATIVE (NEGATIVE); NITRITE, URINE NEGATIVE (NEGATIVE); PROTEIN URINE NEGATIVE (NEGATIVE)
[2023-04-09 03:44] LABS: BILIRUBIN,URINE 1+ (NEGATIVE); BLOOD, URINE 1+ (NEGATIVE)
[2023-04-09 03:45] LABS: BACTERIA,URINE FEW /HPF (None Seen); WBC,URINE 0-3 /HPF (0-3)
[2023-04-09] MEDS ORDERED: MORPHINE 4 MG INJ. 4 MG/ML VIAL ONE (03:49)
[2023-04-09 17:14] VITALS: BP_SYST 135; PULSE 83; RESP 14; TEMP 98; O2SAT 94
== END 2023-04-09 17:14 | disposition home or self-care (01) ==
LOC: SED 22:00
DX: D64.9 Anemia, unspecified (principal); E86.0 Dehydration; R10.84 Generalized abdominal pain; E11.9 Type 2 diabetes mellitus without complications; I10 Essential (primary) hypertension; Z88.0 Allergy status to penicillin; Z91.013 Allergy to seafood; Z91.018 Allergy to other foods; Z85.828 Personal history of other malignant neoplasm of skin; Z79.899 Other long term (current) drug therapy
CPT/HCPCS: 99285; 80053; 81000; 83690; 85025; 36415; 74018; 96374; 96361; 96376; J2270 ×2; J7030

== ENCOUNTER 2023-04-17 22:34 | Emergency (ER) | payer MEDICAID ==
[~2023-04-17] VITALS: Ht 165.1 cm; Wt 63.5 kg
[~2023-04-17 22:34] MED LIST changes: +GABA-529; +LEVO750T64 PO
[2023-04-17 22:40] VITALS: BP_SYST 141; PULSE 119; RESP 22; TEMP 97.7; O2SAT 95
[2023-04-17] MEDS ORDERED: NACL 0.9% 1,000 ML IV ONE (22:45)
[2023-04-17] MEDS ORDERED: KETOROLAC TROMETHAMINE 30 MG VIAL IVP ONE (22:45)
[2023-04-17 23:33] LABS: BASOPHILS # (AUTO) 0.1 K/uL (0.0-0.2); BASOPHILS % (AUTO) 0.6 % (0.0-2.0); EOSINOPHILS # (AUTO) 0.2 K/uL (0.0-0.4); EOSINOPHILS % (AUTO) 1.8 % (0.0-4.0); HEMATOCRIT 38.8 % (36-48); HEMOGLOBIN 12.3 g/dL (12.0-16.0); LYMPHOCYTES # (AUTO) 1.3 K/uL (1.0-5.5); LYMPHOCYTES % (AUTO) 14.4 % (20.5-51.5); MEAN CORPUSCULAR HEMOGLOBIN 23 pg (27-31); MEAN CORPUSCULAR HGB CONC 32 % (32-36); MEAN CORPUSCULAR VOLUME 74 fL (79.0-98.0); MONOCYTES # (AUTO) 0.5 K/uL (0.0-1.0); MONOCYTES % (AUTO) 5.7 % (1.7-9.3); NEUTROPHILS # (AUTO) 6.9 K/uL (1.8-7.7); NEUTROPHILS % (AUTO) 77.5 % (40.0-70.0); PLATELET COUNT (AUTO) 581 K/uL (130-430); RED BLOOD CELL COUNT(AUTO) 5.28 MIL/uL (4.2-6.2); RED CELL DISTRIBUTION WIDTH 23.3 % (9.0-15.0); WHITE BLOOD COUNT (AUTO) 8.9 K/uL (4.8-10.8)
[2023-04-17 23:35] LABS: CALCIUM 9.3 mg/dL (8.4-11.0); CREATININE 0.6 mg/dL (0.55-1.30)
[2023-04-17 23:39] LABS: ALBUMIN 2.5 g/dL (3.4-4.8); TOTAL BILIRUBIN 0.3 mg/dL (0.0-1.0); TOTAL PROTEIN, SERUM 8.5 g/dL (6.4-8.3)
[2023-04-18] MEDS ORDERED: MORPHINE 4 MG INJ. 4 MG/ML VIAL IVP ONE (00:45)
[2023-04-18] MEDS ORDERED: ONDANSETRON HCL 4 MG/2 ML VIAL IVP ONE ×2 (00:45)
[2023-04-18 01:15] LABS: CLARITY/URINE CLEAR (CLEAR); COLOR,URINE YELLOW (YELLOW)
[2023-04-18 01:16] LABS: BILIRUBIN,URINE NEGATIVE (NEGATIVE); BLOOD, URINE NEGATIVE (NEGATIVE); GLUCOSE,URINE NEGATIVE (NEGATIVE); KETONES,URINE 1+ (NEGATIVE); LEUKOCYTE ESTERASE ,URINE NEGATIVE (NEGATIVE); NITRITE, URINE NEGATIVE (NEGATIVE); PH,URINE 6.5 (5.0-8.0); PROTEIN URINE 1+ (NEGATIVE); UROBILINOGEN,URINE 0.2 (0.2-1.0)
[2023-04-18 01:37] LABS: BACTERIA,URINE None Seen /HPF (None Seen)
[2023-04-18] MEDS ORDERED: cefTRIAXone 1 GM IVPB PREMIX 50 ML IV ONE (03:15)
[2023-04-18 08:43] VITALS: BP_SYST 130; PULSE 78; RESP 16; TEMP 98.9; O2SAT 99
== END 2023-04-18 08:45 | disposition home or self-care (01) ==
LOC: SED 22:34
DX: K59.00 Constipation, unspecified (principal); R10.9 Unspecified abdominal pain; M54.50 Low back pain, unspecified; E11.9 Type 2 diabetes mellitus without complications; I10 Essential (primary) hypertension; E78.5 Hyperlipidemia, unspecified; Z88.0 Allergy status to penicillin; Z91.018 Allergy to other foods; Z79.899 Other long term (current) drug therapy
CPT/HCPCS: 99285; 74176; 96374; 96361; 80053; 81000; 83690; 85025; 87040; 36415; 76376; 83605; 96375; 96376; J1885; J7030; J2405; J2270

== ENCOUNTER 2023-05-29 05:07 | Emergency (ER) | payer MEDICAID ==
[~2023-05-29] VITALS: Ht 157.5 cm; Wt 54.4 kg
[~2023-05-29 05:07] MED LIST changes: -GABA-529; -LEVO750T64 PO
[2023-05-29 05:14] VITALS: BP_SYST 115; PULSE 82; RESP 18; TEMP 98.3; O2SAT 98
[2023-05-29 05:25] VITALS: BP_SYST 117; PULSE 120; RESP 16; TEMP 98; O2SAT 98
[2023-05-29] MEDS ORDERED: MORPHINE SULFATE 10 MG/ML VIAL IM ONE (06:15)
[2023-05-29 06:43] LABS: CALCIUM 8.8 mg/dL (8.4-11.0); CREATININE 0.48 mg/dL (0.55-1.30)
[2023-05-29 06:44] LABS: BASOPHILS % (AUTO) 0.2 % (0.0-2.0); EOSINOPHILS % (AUTO) 0.3 % (0.0-4.0); HEMATOCRIT 42.8 % (36-48); HEMOGLOBIN 13.6 g/dL (12.0-16.0); LYMPHOCYTES # (AUTO) 1.2 K/uL (1.0-5.5); LYMPHOCYTES % (AUTO) 13.9 % (20.5-51.5); MEAN CORPUSCULAR HEMOGLOBIN 27 pg (27-31); MEAN CORPUSCULAR HGB CONC 32 % (32-36); MEAN CORPUSCULAR VOLUME 84 fL (79.0-98.0); MONOCYTES # (AUTO) 0.6 K/uL (0.0-1.0); MONOCYTES % (AUTO) 6.6 % (1.7-9.3); PLATELET COUNT (AUTO) 264 K/uL (130-430); RED BLOOD CELL COUNT(AUTO) 5.12 MIL/uL (4.2-6.2); RED CELL DISTRIBUTION WIDTH 28.3 % (9.0-15.0)
[2023-05-29 07:07] LABS: WHITE BLOOD COUNT (AUTO) 8.9 K/uL (4.8-10.8)
[2023-05-29 07:17] LABS: ALBUMIN 2.2 g/dL (3.4-4.8); TOTAL BILIRUBIN 0.2 mg/dL (0.0-1.0); TOTAL PROTEIN, SERUM 5.6 g/dL (6.4-8.3)
[2023-05-29 07:19] LABS: ERYTHROCYTE SEDIMENTATION RATE 18 MM/HR (0-20)
[2023-05-29 08:25] LABS: ANISOCYTOSIS 2+
[2023-05-29 08:29] LABS: BILIRUBIN,URINE 1+ (NEGATIVE); BLOOD, URINE 3+ (NEGATIVE); CLARITY/URINE CLOUDY (CLEAR); COLOR,URINE ORANGE (YELLOW); GLUCOSE,URINE NEGATIVE (NEGATIVE); KETONES,URINE NEGATIVE (NEGATIVE); LEUKOCYTE ESTERASE ,URINE TRACE (NEGATIVE); NITRITE, URINE NEGATIVE (NEGATIVE); PH,URINE 6.5 (5.0-8.0); PROTEIN URINE 2+ (NEGATIVE)
[2023-05-29 08:37] LABS: BACTERIA,URINE FEW /HPF (None Seen); RBC,URINE >100 /HPF (0-3); WBC,URINE 50-80 /HPF (0-3)
[2023-05-29 08:38] LABS: CALCIUM OXALATE CRYSTALS,UR None Seen /HPF (None Seen); CALCIUM PHOSPHATE CRYSTALS,UR None Seen /HPF (None Seen); COARSE GRANULAR CASTS,URINE None Seen /LPF (None Seen); FINE GRANULAR CASTS,URINE None Seen /LPF (None Seen); HYALINE CASTS, URINE None Seen /LPF (None Seen); MUCUS,URINE None Seen /LPF (None Seen); OTHER CASTS, URINE None Seen /LPF (None Seen); OTHER CRYSTALS,URINE None Seen /HPF (None Seen); TRICHOMONAS,URINE None Seen /HPF (None Seen); TRIPLE PHOSPHATE CRYSTAL,UR None Seen /HPF (None Seen); URIC ACID CRYSTALS,URINE None Seen /HPF (None Seen); URINE AMORPHOUS PHOSPHATES None Seen /HPF (None Seen); URINE AMORPHOUS URATE None Seen /HPF (None Seen); WAXY CASTS,URINE None Seen /LPF (None Seen); YEAST,URINE None Seen /HPF (None Seen)
[2023-05-29] MEDS ORDERED: NITR-85 PO (08:58)
== END 2023-05-29 09:00 | disposition home or self-care (01) ==
LOC: SED 05:07
DX: N39.0 Urinary tract infection, site not specified (principal); G89.29 Other chronic pain; M54.50 Low back pain, unspecified; R30.0 Dysuria; R35.0 Frequency of micturition; E11.9 Type 2 diabetes mellitus without complications; I10 Essential (primary) hypertension; E78.5 Hyperlipidemia, unspecified; Z88.0 Allergy status to penicillin; Z91.013 Allergy to seafood; Z91.018 Allergy to other foods; Z79.899 Other long term (current) drug therapy
CPT/HCPCS: 99283; 80053; 81000; 85025; 85651; 87086; 36415; 96372; 82397; J2270

== ENCOUNTER 2023-06-11 16:53 | Emergency (ER) | payer MEDICAID ==
[~2023-06-11] VITALS: Ht 165.1 cm; Wt 65.8 kg
[~2023-06-11 16:53] MED LIST changes: +NITR-85 PO
[2023-06-11 16:58] VITALS: BP_SYST 138; PULSE 130; RESP 20; TEMP 98.1; O2SAT 98
[2023-06-11] MEDS ORDERED: KETOROLAC TROMETHAMINE 60 MG/2 ML VIAL IM ONE (17:30)
[2023-06-11] MEDS ORDERED: MORPHINE 4 MG INJ. 4 MG/ML VIAL IM ONE (17:30)
[2023-06-11 19:37] VITALS: TEMP 97
[2023-06-11] MEDS ORDERED: DICL20GE TP (19:51)
[2023-06-11] MEDS ORDERED: HYDR-3927 PO (19:51)
[2023-06-11] MEDS ORDERED: MORPHINE 2 MG/ML INJ. SYRINGE IM ONE (21:15)
[2023-06-11 21:25] VITALS: BP_SYST 102; PULSE 126; RESP 19; O2SAT 96
== END 2023-06-11 21:25 | disposition home or self-care (01) ==
LOC: SED 16:53
DX: G89.29 Other chronic pain (principal); M54.50 Low back pain, unspecified; C72.0 Malignant neoplasm of spinal cord; E11.9 Type 2 diabetes mellitus without complications; I10 Essential (primary) hypertension; E78.5 Hyperlipidemia, unspecified; Z88.0 Allergy status to penicillin; Z91.013 Allergy to seafood; Z91.018 Allergy to other foods; Z79.899 Other long term (current) drug therapy
CPT/HCPCS: 99284; 96372; J1885; J2270 ×2

== ENCOUNTER 2023-06-19 18:32 | Inpatient (IN) | payer MEDICAID ==
[~2023-06-19] VITALS: Ht 165.1 cm; Wt 55.8 kg
[~2023-06-19 18:32] MED LIST changes: +DICL20GE TP; +HYDR-3927 PO
[2023-06-19 18:37] VITALS: BP_SYST 102; PULSE 100; RESP 18; TEMP 98; O2SAT 97
[2023-06-19] MEDS ORDERED: ONDANSETRON 4 MG ODT TAB PO ONE (18:45)
[2023-06-19] MEDS ORDERED: MORPHINE 4 MG INJ. 4 MG/ML VIAL IVP ONE (18:45)
[2023-06-19] MEDS ORDERED: METOPROLOL TARTRATE 25 MG TABLET PO ONE (19:15)
[2023-06-19] MEDS ORDERED: NACL 0.9% 1,000 ML IV ONE ×2 (20:15→21:15)
[2023-06-19 20:49] LABS: HEMATOCRIT 41.9 % (36-48); HEMOGLOBIN 13.2 g/dL (12.0-16.0); MEAN CORPUSCULAR HEMOGLOBIN 27 pg (27-31); MEAN CORPUSCULAR HGB CONC 32 % (32-36); MEAN CORPUSCULAR VOLUME 84 fL (79.0-98.0); PLATELET COUNT (AUTO) 342 K/uL (130-430); RED BLOOD CELL COUNT(AUTO) 4.96 MIL/uL (4.2-6.2); RED CELL DISTRIBUTION WIDTH 22.2 % (9.0-15.0); WHITE BLOOD COUNT (AUTO) 22.9 K/uL (4.8-10.8)
[2023-06-19 21:12] LABS: CALCIUM 9.8 mg/dL (8.4-11.0); CREATININE 2.74 mg/dL (0.55-1.30); POTASSIUM 4.1 mmol/L (3.5-5.1)
[2023-06-19 21:16] LABS: ALBUMIN 2.3 g/dL (3.4-4.8); TOTAL BILIRUBIN 0.4 mg/dL (0.0-1.0); TOTAL PROTEIN, SERUM 6.1 g/dL (6.4-8.3)
[2023-06-19 21:19] LABS: PROTHROMBIN TIME 10.1 SECS (9.5-12.5)
[2023-06-19 21:20] LABS: BAND % (MANUAL) 7 % (0-6); BASOPHILS % (MANUAL) 0 % (0-2); EOSINOPHILS % (MANUAL) 0 % (0-7); LYMPHOCYTES % (MANUAL) 8 % (20-46); MONOCYTES % (MANUAL) 11 % (0-11)
[2023-06-19 21:21] LABS: ANISOCYTOSIS 2+; HYPOCHROMASIA 1+; OVALOCYTES FEW; PLATELET ESTIMATE ADEQUATE (ADEQUATE); TEAR DROP CELLS MODERATE
[2023-06-19 21:51] LABS: BILIRUBIN,URINE 2+ (NEGATIVE); BLOOD, URINE 3+ (NEGATIVE); CLARITY/URINE CLOUDY (CLEAR); COLOR,URINE RED (YELLOW); GLUCOSE,URINE TRACE (NEGATIVE); KETONES,URINE NEGATIVE (NEGATIVE); LEUKOCYTE ESTERASE ,URINE 2+ (NEGATIVE); NITRITE, URINE POSITIVE (NEGATIVE); PH,URINE 8.5 (5.0-8.0); PROTEIN URINE 3+ (NEGATIVE)
[2023-06-19] MEDS ORDERED: cefTRIAXone 2 GM VIAL ONE (21:54)
[2023-06-19 21:58] LABS: BACTERIA,URINE MANY /HPF (None Seen); RBC,URINE >100 /HPF (0-3); WBC,URINE 20-50 /HPF (0-3)
[2023-06-19] MEDS ORDERED: D5/0.45 NS 1,000 ML IV ONE (22:15)
[2023-06-19] MEDS ORDERED: ALBUMIN HUMAN 25% 100 ML IV ONE (22:15)
[2023-06-19] MEDS ORDERED: DICL100G60 TP (22:16)
[2023-06-19] MEDS ORDERED: DEXA4TAB PO (22:16)
[2023-06-19] MEDS ORDERED: DULO30CA52 PO (22:16)
[2023-06-19] MEDS ORDERED: NITR-85 (22:16)
[2023-06-19] MEDS ORDERED: LEVO750T64 PO (22:16)
[2023-06-19] MEDS ORDERED: CELE100C99 PO (22:16)
[2023-06-19 23:42] VITALS: BP_SYST 155; PULSE 110; RESP 18; TEMP 97.8
[2023-06-20 00:25] VITALS: BP_SYST 137; PULSE 106; RESP 18; TEMP 98; O2SAT 93
[2023-06-20 08:00] VITALS: BP_SYST 136; PULSE 79; RESP 18; TEMP 98.1
[2023-06-20] MEDS ORDERED: LORazepam 2 MG/ML VIAL IVP PRN (10:00)
[2023-06-20] MEDS ORDERED: ACETAMINOPHEN 325 MG TABLET PO PRN ×2 (10:00→10:15)
[2023-06-20] MEDS ORDERED: NALOXONE HCL 0.4 MG/ML AMP (NARCAN) IVP PRN (10:00)
[2023-06-20] MEDS ORDERED: ONDANSETRON 4 MG ODT TAB TL PRN (10:00)
[2023-06-20] MEDS ORDERED: D5/0.45 NS 1,000 ML IV SCH (10:00)
[2023-06-20 10:12] VITALS: O2SAT 98
[2023-06-20] MEDS ORDERED: DULoxetine HCL 30 MG CAPSULE.DR (CYMBALTA) PO ONE (10:15)
[2023-06-20 10:48] LABS: CALCIUM 9.2 mg/dL (8.4-11.0); CREATININE 0.96 mg/dL (0.55-1.30); POTASSIUM 3.1 mmol/L (3.5-5.1)
[2023-06-20 11:06] LABS: HEMOGLOBIN 10.9 g/dL (12.0-16.0); PLATELET COUNT (AUTO) 249 K/uL (130-430)
[2023-06-20] MEDS: HYDROcodone/ACETAMIN 10-325 MG TAB PO PRN (11:09)
[2023-06-20 11:11] LABS: BASOPHILS # (AUTO) 0.1 K/uL (0.0-0.2); BASOPHILS % (AUTO) 0.4 % (0.0-2.0); EOSINOPHILS # (AUTO) 0.1 K/uL (0.0-0.4); EOSINOPHILS % (AUTO) 0.6 % (0.0-4.0); HEMATOCRIT 34.3 % (36-48); LYMPHOCYTES # (AUTO) 2.8 K/uL (1.0-5.5); LYMPHOCYTES % (AUTO) 21.7 % (20.5-51.5); MEAN CORPUSCULAR HEMOGLOBIN 27 pg (27-31); MEAN CORPUSCULAR HGB CONC 32 % (32-36); MEAN CORPUSCULAR VOLUME 85 fL (79.0-98.0); MONOCYTES # (AUTO) 1.3 K/uL (0.0-1.0); MONOCYTES % (AUTO) 9.9 % (1.7-9.3); NEUTROPHILS # (AUTO) 8.8 K/uL (1.8-7.7); NEUTROPHILS % (AUTO) 67.4 % (40.0-70.0); RED BLOOD CELL COUNT(AUTO) 4.03 MIL/uL (4.2-6.2); RED CELL DISTRIBUTION WIDTH 21.5 % (9.0-15.0)
[2023-06-20 11:12] LABS: WHITE BLOOD COUNT (AUTO) 13.1 K/uL (4.8-10.8)
[2023-06-20 11:25] VITALS: BP_SYST 137; PULSE 117; RESP 16; TEMP 98.1; O2SAT 94
[2023-06-20] MEDS ORDERED: DICLOFENAC SODIUM 2 GM TP SCH (13:00)
[2023-06-20] MEDS: GABAPENTIN 300 MG CAPSULE PO SCH ×3 (13:42→21:38)
[2023-06-20 15:22] VITALS: BP_SYST 118; PULSE 107; RESP 16; TEMP 96.9; O2SAT 93
[2023-06-20] MEDS ORDERED: POTASSIUM CHLORIDE 20 MEQ TABLET.ER PO ONE (19:45)
[2023-06-20 20:00] VITALS: BP_SYST 98; PULSE 108; RESP 20; TEMP 98.2; O2SAT 97
[2023-06-20] MEDS: D5NS 1,000 ML IV SCH (21:37)
[2023-06-20] MEDS: SUCRALFATE 1 GM/10 ML UDC PO SCH (21:38)
[2023-06-20] MEDS: cefTRIAXone 1 GM IVPB PREMIX 50 ML IV SCH (21:38)
[2023-06-20] MEDS: CELECOXIB 100 MG CAPSULE PO SCH (21:39)
[2023-06-21 01:07] VITALS: BP_SYST 116; PULSE 112; RESP 20; TEMP 98.4; O2SAT 95
[2023-06-21 05:10] LABS: BASOPHILS # (AUTO) 0.1 K/uL (0.0-0.2); BASOPHILS % (AUTO) 0.4 % (0.0-2.0); EOSINOPHILS # (AUTO) 0.1 K/uL (0.0-0.4); EOSINOPHILS % (AUTO) 0.7 % (0.0-4.0); HEMATOCRIT 34.3 % (36-48); HEMOGLOBIN 10.8 g/dL (12.0-16.0); LYMPHOCYTES # (AUTO) 2.8 K/uL (1.0-5.5); MEAN CORPUSCULAR HEMOGLOBIN 27 pg (27-31); MEAN CORPUSCULAR HGB CONC 31 % (32-36); MEAN CORPUSCULAR VOLUME 84 fL (79.0-98.0); MONOCYTES # (AUTO) 1.3 K/uL (0.0-1.0); MONOCYTES % (AUTO) 10.7 % (1.7-9.3); NEUTROPHILS # (AUTO) 7.9 K/uL (1.8-7.7); NEUTROPHILS % (AUTO) 65.2 % (40.0-70.0); PLATELET COUNT (AUTO) 255 K/uL (130-430); RED BLOOD CELL COUNT(AUTO) 4.06 MIL/uL (4.2-6.2); RED CELL DISTRIBUTION WIDTH 21.1 % (9.0-15.0); WHITE BLOOD COUNT (AUTO) 12.1 K/uL (4.8-10.8)
[2023-06-21 05:29] LABS: CALCIUM 9.3 mg/dL (8.4-11.0); CREATININE 0.52 mg/dL (0.55-1.30); PHOSPHORUS 2.4 mg/dL (2.7-4.5); POTASSIUM 3.4 mmol/L (3.5-5.1)
[2023-06-21] MEDS: D5NS 1,000 ML IV SCH (06:39)
[2023-06-21] MEDS ORDERED: POTASSIUM CHLORIDE 20 MEQ TABLET.ER PO ONE (08:45)
[2023-06-21] MEDS ORDERED: MAGNESIUM SULFATE 3 GM in D5W 100 ML IV ONE (08:45)
[2023-06-21] MEDS: GABAPENTIN 300 MG CAPSULE PO SCH ×4 (09:29→20:40)
[2023-06-21] MEDS: DECADRON 4 MG TABLET PO SCH (09:29)
[2023-06-21] MEDS: SUCRALFATE 1 GM/10 ML UDC PO SCH ×2 (09:29→20:40)
[2023-06-21] MEDS: CELECOXIB 100 MG CAPSULE PO SCH ×2 (09:29→20:40)
[2023-06-21] MEDS: DULoxetine HCL 30 MG CAPSULE.DR (CYMBALTA) PO SCH (09:29)
[2023-06-21 10:24] VITALS: O2SAT 95
[2023-06-21 10:38] VITALS: BP_SYST 147; PULSE 100; RESP 18; TEMP 98.3; O2SAT 95
[2023-06-21 11:29] VITALS: BP_SYST 107; PULSE 83; RESP 16; TEMP 97; O2SAT 94
[2023-06-21] MEDS ORDERED: K PHOS 15 MM in NS 250 ML IV ONE (12:00)
[2023-06-21] MEDS: metroNIDAZOLE 250 mg/NS 50 ML IV SCH ×2 (13:35→21:57)
[2023-06-21 15:05] VITALS: BP_SYST 101; PULSE 101; RESP 16; TEMP 96.4; O2SAT 100
[2023-06-21] MEDS: NORMAL SALINE 5 ML DISP.SYRIN IVF SCH (17:00)
[2023-06-21 20:00] VITALS: BP_SYST 126; PULSE 110; RESP 20; TEMP 98.2; O2SAT 97
[2023-06-21] MEDS: HYDROcodone/ACETAMIN 10-325 MG TAB PO PRN (20:41)
[2023-06-21] MEDS: cefTRIAXone 1 GM IVPB PREMIX 50 ML IV SCH (20:42)
[2023-06-22 01:02] VITALS: BP_SYST 118; PULSE 97; RESP 19; TEMP 97.9; O2SAT 96
[2023-06-22] MEDS: HYDROcodone/ACETAMIN 10-325 MG TAB PO PRN (01:31)
[2023-06-22] MEDS: NORMAL SALINE 5 ML DISP.SYRIN IVF SCH ×4 (01:32→22:29)
[2023-06-22 02:16] VITALS: RESP 20
[2023-06-22 05:09] LABS: ERYTHROCYTE SEDIMENTATION RATE 25 MM/HR (0-20)
[2023-06-22 05:19] LABS: BASOPHILS % (AUTO) 0.2 % (0.0-2.0); HEMATOCRIT 32.6 % (36-48); HEMOGLOBIN 10.4 g/dL (12.0-16.0); LYMPHOCYTES # (AUTO) 2.5 K/uL (1.0-5.5); LYMPHOCYTES % (AUTO) 14.7 % (20.5-51.5); MEAN CORPUSCULAR HEMOGLOBIN 27 pg (27-31); MEAN CORPUSCULAR HGB CONC 32 % (32-36); MEAN CORPUSCULAR VOLUME 84 fL (79.0-98.0); MONOCYTES # (AUTO) 0.5 K/uL (0.0-1.0); MONOCYTES % (AUTO) 3.1 % (1.7-9.3); NEUTROPHILS # (AUTO) 14.2 K/uL (1.8-7.7); PLATELET COUNT (AUTO) 299 K/uL (130-430); RED BLOOD CELL COUNT(AUTO) 3.91 MIL/uL (4.2-6.2); RED CELL DISTRIBUTION WIDTH 21.3 % (9.0-15.0); WHITE BLOOD COUNT (AUTO) 17.3 K/uL (4.8-10.8)
[2023-06-22 05:48] LABS: CALCIUM 9.2 mg/dL (8.4-11.0); CREATININE 0.6 mg/dL (0.55-1.30); POTASSIUM 4.2 mmol/L (3.5-5.1)
[2023-06-22] MEDS: metroNIDAZOLE 250 mg/NS 50 ML IV SCH ×3 (06:23→22:27)
[2023-06-22] MEDS: traMADol HCL HCL 50 MG TABLET (ULTRAM) PO PRN ×2 (06:54→14:04)
[2023-06-22 08:00] VITALS: BP_SYST 151; PULSE 102; RESP 16; TEMP 98; O2SAT 97; O2SAT 98
[2023-06-22] MEDS: DECADRON 4 MG TABLET PO SCH (08:44)
[2023-06-22] MEDS: GABAPENTIN 300 MG CAPSULE PO SCH ×4 (08:44→21:52)
[2023-06-22] MEDS: SUCRALFATE 1 GM/10 ML UDC PO SCH ×2 (08:44→21:52)
[2023-06-22] MEDS: DOCUSATE SODIUM 100 MG/10 ML UDC PO SCH ×2 (08:44→21:52)
[2023-06-22] MEDS: DULoxetine HCL 30 MG CAPSULE.DR (CYMBALTA) PO SCH (08:44)
[2023-06-22] MEDS: CELECOXIB 100 MG CAPSULE PO SCH ×2 (08:45→21:52)
[2023-06-22 11:21] VITALS: BP_SYST 147; PULSE 105; RESP 16; TEMP 96.9; O2SAT 97
[2023-06-22 15:25] VITALS: BP_SYST 156; PULSE 104; RESP 16; TEMP 97.9; O2SAT 95
[2023-06-22] MEDS: HYDROcodone/ACETAMIN 5-325 MG TAB (NORCO/ VICODIN) PO PRN (17:41)
[2023-06-22] MEDS ORDERED: NYSTATIN 15 GM TOPICAL POWDER TP ONE (18:00)
[2023-06-22 19:40] VITALS: BP_SYST 144; PULSE 80; RESP 18; TEMP 98.2; O2SAT 96
[2023-06-22] MEDS: cefTRIAXone 1 GM IVPB PREMIX 50 ML IV SCH (21:53)
[2023-06-22] MEDS: NYSTATIN 15 GM TOPICAL POWDER TP SCH (22:27)
[2023-06-22] MEDS: HEPARIN SODIUM,PORCINE 5,000 UNITS/ML VIAL SUBCUT SCH (22:29)
[2023-06-23 01:40] VITALS: BP_SYST 130; PULSE 98; RESP 17; TEMP 97.6; O2SAT 96
[2023-06-23] MEDS: metroNIDAZOLE 250 mg/NS 50 ML IV SCH ×3 (05:46→21:43)
[2023-06-23] MEDS: HYDROcodone/ACETAMIN 5-325 MG TAB (NORCO/ VICODIN) PO PRN ×4 (06:00→21:44)
[2023-06-23 06:01] LABS: ERYTHROCYTE SEDIMENTATION RATE 26 MM/HR (0-20)
[2023-06-23 06:05] LABS: BASOPHILS % (AUTO) 0.1 % (0.0-2.0); HEMATOCRIT 35.6 % (36-48); HEMOGLOBIN 11.3 g/dL (12.0-16.0); LYMPHOCYTES % (AUTO) 14.7 % (20.5-51.5); MEAN CORPUSCULAR HEMOGLOBIN 26 pg (27-31); MEAN CORPUSCULAR HGB CONC 32 % (32-36); MEAN CORPUSCULAR VOLUME 84 fL (79.0-98.0); MONOCYTES # (AUTO) 1.1 K/uL (0.0-1.0); MONOCYTES % (AUTO) 5.5 % (1.7-9.3); NEUTROPHILS # (AUTO) 16.1 K/uL (1.8-7.7); NEUTROPHILS % (AUTO) 79.7 % (40.0-70.0); PLATELET COUNT (AUTO) 376 K/uL (130-430); RED BLOOD CELL COUNT(AUTO) 4.27 MIL/uL (4.2-6.2); RED CELL DISTRIBUTION WIDTH 20.4 % (9.0-15.0); WHITE BLOOD COUNT (AUTO) 20.3 K/uL (4.8-10.8)
[2023-06-23] MEDS: NORMAL SALINE 5 ML DISP.SYRIN IVF SCH ×3 (06:09→21:52)
[2023-06-23 06:21] LABS: CALCIUM 9.4 mg/dL (8.4-11.0); CREATININE 0.55 mg/dL (0.55-1.30); PHOSPHORUS 2.7 mg/dL (2.7-4.5)
[2023-06-23 07:00] VITALS: O2SAT 96
[2023-06-23 08:00] VITALS: BP_SYST 138; PULSE 88; RESP 16; TEMP 98.4; O2SAT 96
[2023-06-23] MEDS: NYSTATIN 15 GM TOPICAL POWDER TP SCH ×2 (09:00→21:51)
[2023-06-23] MEDS: DOCUSATE SODIUM 100 MG/10 ML UDC PO SCH ×3 (09:00→21:00)
[2023-06-23] MEDS: DULoxetine HCL 30 MG CAPSULE.DR (CYMBALTA) PO SCH ×2 (09:00→10:38)
[2023-06-23] MEDS: GABAPENTIN 300 MG CAPSULE PO SCH ×4 (09:00→21:00)
[2023-06-23] MEDS: CELECOXIB 100 MG CAPSULE PO SCH ×3 (09:00→21:44)
[2023-06-23] MEDS: SUCRALFATE 1 GM/10 ML UDC PO SCH ×2 (10:20→21:44)
[2023-06-23] MEDS: HEPARIN SODIUM,PORCINE 5,000 UNITS/ML VIAL SUBCUT SCH ×2 (10:22→21:47)
[2023-06-23] MEDS: DECADRON 4 MG TABLET PO SCH ×2 (10:38→10:57)
[2023-06-23 12:00] VITALS: BP_SYST 127; PULSE 93; RESP 16; TEMP 97.4; O2SAT 95
[2023-06-23 16:00] VITALS: BP_SYST 130; PULSE 90; RESP 16; TEMP 98; O2SAT 95
[2023-06-23 19:35] VITALS: BP_SYST 118; PULSE 73; RESP 18; TEMP 97.6; O2SAT 99
[2023-06-23] MEDS: cefTRIAXone 1 GM IVPB PREMIX 50 ML IV SCH (21:43)
[2023-06-24] MEDS: HYDROcodone/ACETAMIN 10-325 MG TAB PO PRN ×4 (00:09→16:56)
[2023-06-24 01:03] VITALS: BP_SYST 128; PULSE 97; RESP 18; TEMP 97.1; O2SAT 94
[2023-06-24 05:46] LABS: ERYTHROCYTE SEDIMENTATION RATE 36 MM/HR (0-20)
[2023-06-24 06:43] LABS: BASOPHILS # (AUTO) 0.1 K/uL (0.0-0.2); BASOPHILS % (AUTO) 0.4 % (0.0-2.0); EOSINOPHILS % (AUTO) 0.1 % (0.0-4.0); HEMATOCRIT 38.1 % (36-48); LYMPHOCYTES # (AUTO) 4.8 K/uL (1.0-5.5); LYMPHOCYTES % (AUTO) 23.8 % (20.5-51.5); MEAN CORPUSCULAR HEMOGLOBIN 27 pg (27-31); MEAN CORPUSCULAR HGB CONC 32 % (32-36); MEAN CORPUSCULAR VOLUME 84 fL (79.0-98.0); MONOCYTES # (AUTO) 2.1 K/uL (0.0-1.0); MONOCYTES % (AUTO) 10.2 % (1.7-9.3); NEUTROPHILS # (AUTO) 13.3 K/uL (1.8-7.7); NEUTROPHILS % (AUTO) 65.5 % (40.0-70.0); PLATELET COUNT (AUTO) 402 K/uL (130-430); RED BLOOD CELL COUNT(AUTO) 4.52 MIL/uL (4.2-6.2); RED CELL DISTRIBUTION WIDTH 20.9 % (9.0-15.0); WHITE BLOOD COUNT (AUTO) 20.2 K/uL (4.8-10.8)
[2023-06-24] MEDS: metroNIDAZOLE 250 mg/NS 50 ML IV SCH ×2 (06:44→13:12)
[2023-06-24 06:47] LABS: ALBUMIN 2.2 g/dL (3.4-4.8); CALCIUM 9.4 mg/dL (8.4-11.0); CREATININE 0.47 mg/dL (0.55-1.30); POTASSIUM 3.6 mmol/L (3.5-5.1); TOTAL BILIRUBIN 0.1 mg/dL (0.0-1.0); TOTAL PROTEIN, SERUM 5.7 g/dL (6.4-8.3)
[2023-06-24] MEDS: NORMAL SALINE 5 ML DISP.SYRIN IVF SCH ×2 (06:47→13:12)
[2023-06-24 08:00] VITALS: BP_SYST 114; PULSE 116; RESP 18; TEMP 98.4; O2SAT 94
[2023-06-24] MEDS: DOCUSATE SODIUM 100 MG/10 ML UDC PO SCH ×2 (09:00→10:27)
[2023-06-24] MEDS: DULoxetine HCL 30 MG CAPSULE.DR (CYMBALTA) PO SCH (10:26)
[2023-06-24] MEDS: SUCRALFATE 1 GM/10 ML UDC PO SCH (10:28)
[2023-06-24] MEDS: GABAPENTIN 300 MG CAPSULE PO SCH ×3 (10:28→17:00)
[2023-06-24] MEDS: CELECOXIB 100 MG CAPSULE PO SCH (10:28)
[2023-06-24] MEDS: HEPARIN SODIUM,PORCINE 5,000 UNITS/ML VIAL SUBCUT SCH (10:29)
[2023-06-24] MEDS: NYSTATIN 15 GM TOPICAL POWDER TP SCH (10:30)
[2023-06-24] MEDS ORDERED: DECADRON 4 MG TABLET PO ONE (10:45)
[2023-06-24] MEDS: DECADRON 4 MG TABLET PO SCH (10:47)
[2023-06-24] MEDS ORDERED: CIPR500T5 PO (10:53)
[2023-06-24 12:00] VITALS: BP_SYST 129; PULSE 111; RESP 20; TEMP 97.2; O2SAT 94
[2023-06-24 16:00] VITALS: BP_SYST 103; PULSE 125; RESP 16; TEMP 97; O2SAT 95
== END 2023-06-24 18:04 | disposition home health service (06) | DRG 720 ==
LOC: SED 18:32 → STU 22:08
PROVIDERS: ADMIT Preventive Medicine Preventive Medicine/Occupational Environmental Medicine; ATTEND Preventive Medicine Preventive Medicine/Occupational Environmental Medicine
PROC: 05HY33Z Insertion of Infusion Device into Upper Vein, Percutaneous Approach (ICD-10-PCS; principal; 2023-06-22)
PROC: B54NZZA Ultrasonography of Left Upper Extremity Veins, Guidance (ICD-10-PCS; 2023-06-22)
DX: A41.9 Sepsis, unspecified organism (principal); N17.0 Acute kidney failure with tubular necrosis; E43 Unspecified severe protein-calorie malnutrition; C79.9 Secondary malignant neoplasm of unspecified site; J18.1 Lobar pneumonia, unspecified organism; E83.39 Other disorders of phosphorus metabolism; E88.09 Other disorders of plasma-protein metabolism, not elsewhere classified; E11.65 Type 2 diabetes mellitus with hyperglycemia; D64.9 Anemia, unspecified; N39.0 Urinary tract infection, site not specified; E87.6 Hypokalemia; E78.5 Hyperlipidemia, unspecified; I10 Essential (primary) hypertension; F10.20 Alcohol dependence, uncomplicated; Y90.9 Presence of alcohol in blood, level not specified; G89.29 Other chronic pain; Z88.0 Allergy status to penicillin; Z91.013 Allergy to seafood; Z74.01 Bed confinement status; Z91.018 Allergy to other foods; Z79.899 Other long term (current) drug therapy; Z68.20 Body mass index [BMI] 20.0-20.9, adult
CPT/HCPCS: 36415; 71045; 74018; 76770; 80048; 80053; 81000; 81001; 81015; 83605; 83735; 84100; 84484; 85007; 85025; 85027; 85610-TC; 85651-TC; 85730-TC; 87040; 87086; 93005; 96361; 96365; 96367; 96375; 97110-GP; 97530-GP; 99291; 99292; G0378; J0696; J1644; J2060; J2270; J3475; J3490; J7050; J7060; J8540; P9046; Q0162

== ENCOUNTER 2023-06-26 00:27 | Inpatient (IN) | payer MEDICAID ==
[~2023-06-26] VITALS: Ht 152.4 cm; Wt 63.0 kg
[~2023-06-26 00:27] MED LIST changes: +CELE100C99 PO; +CIPR500T5 PO; +DEXA4TAB PO; +DICL100G60 TP; +DULO30CA52 PO; -NITR-85 PO
[2023-06-26 00:36] VITALS: BP_SYST 92; PULSE 110; RESP 17; TEMP 96.6; O2SAT 97
[2023-06-26] MEDS ORDERED: NS 1000 ML IV.SOLN IV ONE (01:00)
[2023-06-26] MEDS ORDERED: MORPHINE 2 MG/ML INJ. SYRINGE IVP ONE ×2 (01:15→04:00)
[2023-06-26 01:51] LABS: ANION GAP 10 (5-15); CALCIUM 10.6 mg/dL (8.4-11.0); CARBON DIOXIDE 27 mmol/L (23-29); CHLORIDE 98 mmol/L (98-107); CREATININE 0.66 mg/dL (0.55-1.30); GFR AFRICAN AMERICAN 117 mL/min (>90); GLUCOSE 121 mg/dL (74-106); POTASSIUM 3.4 mmol/L (3.5-5.1); SODIUM SERUM 135 mmol/L (136-145); UREA NITROGEN, BLOOD 21 mg/dL (8-21)
[2023-06-26 01:58] LABS: ALANINE AMINOTRANSFERASE 24 U/L (12-78); ALBUMIN 2.6 g/dL (3.4-4.8); ASPARTATE AMINOTRANSFERASE 18 U/L (10-37); TOTAL BILIRUBIN 0.2 mg/dL (0.0-1.0); TOTAL PROTEIN, SERUM 6.4 g/dL (6.4-8.3)
[2023-06-26 02:01] LABS: GFR NON AFRICAN-AMERICAN 96 mL/min (>90)
[2023-06-26 02:26] LABS: BASOPHILS # (AUTO) 0.1 K/uL (0.0-0.2); BASOPHILS % (AUTO) 0.3 % (0.0-2.0); EOSINOPHILS # (AUTO) 0.1 K/uL (0.0-0.4); EOSINOPHILS % (AUTO) 0.2 % (0.0-4.0); HEMATOCRIT 41.9 % (36-48); HEMOGLOBIN 13.5 g/dL (12.0-16.0); LYMPHOCYTES # (AUTO) 4.6 K/uL (1.0-5.5); LYMPHOCYTES % (AUTO) 19.3 % (20.5-51.5); MEAN CORPUSCULAR HEMOGLOBIN 27 pg (27-31); MEAN CORPUSCULAR HGB CONC 32 % (32-36); MEAN CORPUSCULAR VOLUME 83 fL (79.0-98.0); MONOCYTES # (AUTO) 2.3 K/uL (0.0-1.0); MONOCYTES % (AUTO) 9.4 % (1.7-9.3); NEUTROPHILS % (AUTO) 70.8 % (40.0-70.0); PLATELET COUNT (AUTO) 522 K/uL (130-430); RED BLOOD CELL COUNT(AUTO) 5.03 MIL/uL (4.2-6.2); RED CELL DISTRIBUTION WIDTH 20.7 % (9.0-15.0); WHITE BLOOD COUNT (AUTO) 24.1 K/uL (4.8-10.8)
[2023-06-26] MEDS ORDERED: MEROPENEM 1 GM in NS 100 ML IV ONE (02:30)
[2023-06-26] MEDS ORDERED: MEROPENEM 1 GM VIAL IV ONE (02:57)
[2023-06-26] MEDS ORDERED: ACETAMINOPHEN 500 MG TABLET PO PRN (04:00)
[2023-06-26] MEDS ORDERED: NACL 0.9% 1,000 ML IV ONE (04:00)
[2023-06-26 05:42] LABS: BILIRUBIN,URINE NEGATIVE (NEGATIVE); BLOOD, URINE NEGATIVE (NEGATIVE); CLARITY/URINE CLEAR (CLEAR); COLOR,URINE YELLOW (YELLOW); GLUCOSE,URINE NEGATIVE (NEGATIVE); KETONES,URINE NEGATIVE (NEGATIVE); LEUKOCYTE ESTERASE ,URINE NEGATIVE (NEGATIVE); NITRITE, URINE NEGATIVE (NEGATIVE); PH,URINE 8.5 (5.0-8.0); PROTEIN URINE NEGATIVE (NEGATIVE); UROBILINOGEN,URINE 0.2 (0.2-1.0)
[2023-06-26] MEDS ORDERED: NALOXONE HCL 0.4 MG/ML AMP (NARCAN) IVP PRN ×2 (08:00→11:00)
[2023-06-26] MEDS: HYDROcodone/ACETAMIN 5-325 MG TAB (NORCO/ VICODIN) PO PRN (08:16)
[2023-06-26 11:00] VITALS: BP_SYST 111; PULSE 107; RESP 17; TEMP 98.4
[2023-06-26] MEDS ORDERED: HYDROcodone/ACETAMIN 10-325 MG TAB PO PRN (11:00)
[2023-06-26] MEDS ORDERED: POTASSIUM CHLORIDE 20 MEQ TAB.PRT.SR PO ONE (11:00)
[2023-06-26] MEDS ORDERED: DECADRON 4 MG TABLET PO ONE (11:00)
[2023-06-26] MEDS ORDERED: ONDANSETRON 4 MG ODT TAB TL PRN (11:00)
[2023-06-26] MEDS ORDERED: DICLOFENAC SODIUM 2 GM TP SCH (11:00)
[2023-06-26] MEDS ORDERED: CELECOXIB 100 MG CAPSULE PO ONE (11:00)
[2023-06-26] MEDS ORDERED: traMADol HCL HCL 50 MG TABLET (ULTRAM) PO PRN (11:00)
[2023-06-26] MEDS ORDERED: KETOROLAC TROMETHAMINE 10 MG TABLET (TORADOL) PO PRN (11:00)
[2023-06-26] MEDS ORDERED: PANTOPRAZOLE SODIUM 40 MG TAB PO ONE (11:15)
[2023-06-26] MEDS ORDERED: SUCRALFATE 1 GM/10 ML UDC PO ONE (11:15)
[2023-06-26] MEDS ORDERED: DULoxetine HCL 30 MG CAPSULE.DR (CYMBALTA) PO ONE (11:15)
[2023-06-26] MEDS ORDERED: ACETAMINOPHEN 325 MG TABLET PO PRN (11:30)
[2023-06-26 11:31] VITALS: BP_SYST 111; PULSE 107; RESP 17; TEMP 98.4; O2SAT 97
[2023-06-26] MEDS: NACL 0.9% 1,000 ML IV SCH ×3 (11:42→20:36)
[2023-06-26] MEDS: MEROPENEM 1 GM IVPB PREMIX 50 ML IV SCH ×2 (11:55→20:35)
[2023-06-26] MEDS: DICLOFENAC SODIUM 2 GM TP SCH ×3 (12:46→21:00)
[2023-06-26] MEDS ORDERED: GABAPENTIN 300 MG CAPSULE PO SCH (13:00)
[2023-06-26] MEDS: MORPHINE 4 MG INJ. 4 MG/ML VIAL IVP PRN ×2 (14:24→18:46)
[2023-06-26] MEDS: VANCOMYCIN HCL 750 MG in NS 250 ML IV SCH ×2 (14:52→21:48)
[2023-06-26 16:10] VITALS: BP_SYST 105; PULSE 100; RESP 18; TEMP 98.7; O2SAT 97
[2023-06-26 20:00] VITALS: O2SAT 95
[2023-06-26] MEDS: SUCRALFATE 1 GM/10 ML UDC PO SCH (21:47)
[2023-06-26] MEDS: PANTOPRAZOLE SODIUM 40 MG TAB PO SCH (21:47)
[2023-06-26] MEDS: CELECOXIB 100 MG CAPSULE PO SCH (21:47)
[2023-06-27] VITALS (7 sets, daily range): BP systolic 121–144; PULSE 76–113; RESP 16–20; TEMP 96.5–98.2; O2SAT 95–98
[2023-06-27] MEDS: NACL 0.9% 1,000 ML IV SCH ×4 (03:37→17:00)
[2023-06-27] MEDS: MEROPENEM 1 GM IVPB PREMIX 50 ML IV SCH ×3 (03:37→20:10)
[2023-06-27 05:17] LABS: BASOPHILS # (AUTO) 0.1 K/uL (0.0-0.2); BASOPHILS % (AUTO) 0.4 % (0.0-2.0); HEMATOCRIT 36.9 % (36-48); HEMOGLOBIN 11.6 g/dL (12.0-16.0); LYMPHOCYTES # (AUTO) 1.9 K/uL (1.0-5.5); LYMPHOCYTES % (AUTO) 9.9 % (20.5-51.5); MEAN CORPUSCULAR HEMOGLOBIN 27 pg (27-31); MEAN CORPUSCULAR HGB CONC 31 % (32-36); MEAN CORPUSCULAR VOLUME 84 fL (79.0-98.0); MONOCYTES # (AUTO) 0.3 K/uL (0.0-1.0); MONOCYTES % (AUTO) 1.5 % (1.7-9.3); NEUTROPHILS # (AUTO) 16.6 K/uL (1.8-7.7); NEUTROPHILS % (AUTO) 88.2 % (40.0-70.0); PLATELET COUNT (AUTO) 409 K/uL (130-430); RED BLOOD CELL COUNT(AUTO) 4.37 MIL/uL (4.2-6.2); RED CELL DISTRIBUTION WIDTH 20.1 % (9.0-15.0); WHITE BLOOD COUNT (AUTO) 18.8 K/uL (4.8-10.8)
[2023-06-27] MEDS: VANCOMYCIN HCL 750 MG in NS 250 ML IV SCH (05:31)
[2023-06-27 05:46] LABS: ALBUMIN 2.1 g/dL (3.4-4.8); CALCIUM 9.3 mg/dL (8.4-11.0); CREATININE 0.62 mg/dL (0.55-1.30); POTASSIUM 3.6 mmol/L (3.5-5.1); TOTAL BILIRUBIN 0.2 mg/dL (0.0-1.0); TOTAL PROTEIN, SERUM 5.6 g/dL (6.4-8.3)
[2023-06-27] MEDS: SUCRALFATE 1 GM/10 ML UDC PO SCH ×2 (08:44→20:10)
[2023-06-27] MEDS: CELECOXIB 100 MG CAPSULE PO SCH ×2 (08:44→20:10)
[2023-06-27] MEDS: PANTOPRAZOLE SODIUM 40 MG TAB PO SCH ×2 (08:44→20:10)
[2023-06-27] MEDS: DICLOFENAC SODIUM 2 GM TP SCH ×3 (08:45→17:00)
[2023-06-27] MEDS: MORPHINE 4 MG INJ. 4 MG/ML VIAL IVP PRN ×3 (08:47→20:19)
[2023-06-27] MEDS ORDERED: DECADRON 4 MG TABLET PO SCH (09:00)
[2023-06-27] MEDS ORDERED: DULoxetine HCL 30 MG CAPSULE.DR (CYMBALTA) PO SCH (09:00)
[2023-06-27] MEDS ORDERED: PRO40 PO (17:06)
[2023-06-27] MEDS ORDERED: HYDR-3919 PO (17:06)
[2023-06-27] MEDS ORDERED: MERO1VIA23 IV (17:06)
[2023-06-27] MEDS ORDERED: MORP4VIA IVP (17:06)
[2023-06-27] MEDS: HYDROcodone/ACETAMIN 5-325 MG TAB (NORCO/ VICODIN) PO PRN (17:53)
== END 2023-06-27 21:29 | disposition short-term general hospital (02) | DRG 720 ==
LOC: SED 00:27 → STU 03:58 → SMU 09:22
PROVIDERS: ADMIT Internal Medicine; ATTEND Internal Medicine
DX: A41.9 Sepsis, unspecified organism (principal); J69.0 Pneumonitis due to inhalation of food and vomit; E43 Unspecified severe protein-calorie malnutrition; C41.2 Malignant neoplasm of vertebral column; G82.20 Paraplegia, unspecified; J18.9 Pneumonia, unspecified organism; E87.1 Hypo-osmolality and hyponatremia; R16.0 Hepatomegaly, not elsewhere classified; K21.9 Gastro-esophageal reflux disease without esophagitis; K57.90 Diverticulosis of intestine, part unspecified, without perforation or abscess without bleeding; Z20.822 Contact with and (suspected) exposure to COVID-19; E78.5 Hyperlipidemia, unspecified; D75.839 Thrombocytosis, unspecified; N20.0 Calculus of kidney; K82.9 Disease of gallbladder, unspecified; Z88.8 Allergy status to other drugs, medicaments and biological substances; Z88.0 Allergy status to penicillin; Z91.013 Allergy to seafood; Z79.899 Other long term (current) drug therapy; Z74.01 Bed confinement status; Z79.891 Long term (current) use of opiate analgesic; Z68.27 Body mass index [BMI] 27.0-27.9, adult; M06.9 Rheumatoid arthritis, unspecified
CPT/HCPCS: 36415; 71045; 71250-TC; 76376; 80053; 81001; 81003; 83605; 83735; 84484; 85025; 87040; 87081; 87086; 93005; 96361; 96365; 96375; 96376; 96379; 97110-GP; 97163-GP; 97530-GP; 99285; J2185; J2270; J7050; J8540